=== PATIENT | female | born 1935 | race Caucasian/White ===

== ENCOUNTER 2017-10-18 22:25 | Inpatient (IN) | payer OTHER ==
[2017-10-18 22:44] VITALS: BMI 27.3
--- NOTE | 2017-10-18 23:29 | PDOC ---
History of Present Illness - General Chief Complaint: SIRS, Suspected/Possible Stated Complaint: FEVER Time Seen by Provider: 10/18/17 23:12 Past History - Past Medical History Allergies/Adverse Reactions: Allergies Allergy/AdvReac Type Severity Reaction Status Date / Time Penicillins Allergy Unknown Verified 10/18/17 22:40 Home Medications: Ambulatory Orders Acetaminophen [Mapap] 1,000 mg PO BID 11/17/16 Cariprazine HCl [Vraylar] 1 each PO DAILY 11/17/16 Dextran 70/Hypromellose [Natural Balance Tears Eye Drop] 15 ml OP TID 11/17/16 Nifedipine [Nifedical Xl] 60 mg PO DAILY 11/17/16 Pramipexole Dihydrochloride [Mirapex -] 1 mg PO BID 11/17/16 Nitrofurantoin Monohyd/M-Cryst [Macrobid -] 100 mg PO BID #14 capsule MDD 2 Dementia: Yes GI Disorders: Yes (CONSTIPATION.) HTN: Yes - Suicide/Smoking/Psychosocial Hx Smoking History: Unknown if ever smoked Have you smoked in the past 12 months: No Information on smoking cessation initiated: No Hx Alcohol Use: No Drug/Substance Use Hx: No Substance Use Type: None *Physical Exam - Vital Signs Last Vital Signs Temp Pulse Resp BP Pulse Ox 99.2 F 112 H 14 151/70 99 10/18/17 22:40 10/18/17 22:40 10/18/17 22:40 10/18/17 22:40 10/18/17 22:40
[2017-10-18] MEDS ORDERED: ACETAMINOPHEN 1000 MG/100 ML VIAL (NON FORMULARY) IVPB ONE (23:33)
--- NOTE | 2017-10-18 23:44 | PDOC ---
History of Present Illness <SilvinostefanDemetrioshannonaden - Last Filed: 10/19/17 00:09> - General History Source: Snf Records Exam Limitations: Dementia - History of Present Illness Initial Comments: This is an 82 YOF with h/o UTI with ESBL resistant to cipro, dementia, HTN, spinal stenosis, and DVT/PE who presents c/o fever BIBA from her [facility] ([address] [place] [address]). The patient herself is unable to provide any of her recent medical history or current symptoms 2/2 dementia, and her medical history is taken from her [facility] records. The patient reportedly had a temperature of 102.2 measured tonight and was given #2 Tylenol tabs, but the fever increased to 102.8 as measured two hours later. They also reported her HR to be 122, and her BP was 188/103. <Leilani Joyner - Last Filed: 10/19/17 06:56> - General Chief Complaint: SIRS, Suspected/Possible Stated Complaint: FEVER Time Seen by Provider: 10/18/17 23:12 Past History <SilvinoPaulina aviles - Last Filed: 10/19/17 00:09> - Past Medical History Dementia: Yes GI Disorders: Yes (CONSTIPATION.) HTN: Yes - Suicide/Smoking/Psychosocial Hx Smoking History: Unknown if ever smoked Have you smoked in the past 12 months: No Information on smoking cessation initiated: No Hx Alcohol Use: No Drug/Substance Use Hx: No Substance Use Type: None <Leilani Joyner - Last Filed: 10/19/17 06:56> - Past Medical History Allergies/Adverse Reactions: Allergies Allergy/AdvReac Type Severity Reaction Status Date / Time Penicillins Allergy Unknown Verified 10/18/17 22:40 Home Medications: Ambulatory Orders Acetaminophen [Mapap] 1,000 mg PO BID 11/17/16 Cariprazine HCl [Vraylar] 1 each PO DAILY 11/17/16 Dextran 70/Hypromellose [Natural Balance Tears Eye Drop] 15 ml OP TID 11/17/16 Nifedipine [Nifedical Xl] 60 mg PO DAILY 11/17/16 Pramipexole Dihydrochloride [Mirapex -] 1 mg PO BID 11/17/16 Nitrofurantoin Monohyd/M-Cryst [Macrobid -] 100 mg PO BID #14 capsule MDD 2 Review of Systems - Review of Systems Able to Perform ROS?: No (Dementia) <Leilani Joyner - Last Filed: 10/19/17 06:56> *Physical Exam - Vital Signs Last Vital Signs Temp Pulse Resp BP Pulse Ox 99.2 F 112 H 14 151/70 99 10/18/17 22:40 10/18/17 22:40 10/18/17 22:40 10/18/17 22:40 10/18/17 22:40 <Paulina Patrick - Last Filed: 10/19/17 00:09> - Vital Signs Last Vital Signs Temp Pulse Resp BP Pulse Ox 99.2 F 112 H 14 151/70 99 10/18/17 22:40 10/18/17 22:40 10/18/17 22:40 10/18/17 22:40 10/18/17 22:40 - Physical Exam General Appearance: Yes: Nourished, Appropriately Dressed, Other (initially sleepy but arousable, pleasant elderly woman with obvious dementia, oriented only to self and own birthdate, not to date/season or type of building or city, obvious mild crusting of both eyes, mildly diaphoretic and flushed face) HEENT: positive: EOMI, SALOME, Normal Voice, TMs Normal, Pharynx Normal, Hearing Grossly Normal. negative: Scleral Icterus (R), Scleral Icterus (L), Nasal Congestion Neck: positive: Trachea midline, Supple. negative: Tender, Rigid Respiratory/Chest: positive: Lungs Clear, Normal Breath Sounds. negative: Chest Tender, Respiratory Distress, Crackles, Rhonchi, Stridor, Wheezing Cardiovascular: positive: Regular Rhythm, Edema (1+ pitting edema BLE), Tachycardia, Systolic Murmur Gastrointestinal/Abdominal: positive: Normal Bowel Sounds, Tender (mild RUQ ttp) , Soft. negative: Organomegaly, Pulsatile Mass, Guarding Musculoskeletal: positive: Normal Inspection. negative: Decreased Range of Motion, Vertebral Tenderness Extremity: positive: Normal Capillary Refill, Normal Inspection, Normal Range of Motion, Swelling. negative: Tender, Cyanosis, Calf Tenderness, Erythema Integumentary: positive: Normal Color, Dry, Warm. negative: Erythema, Rash, Bruising Neurologic: positive: trim technician II-XII NML intact (grossly), Alert, Normal Mood/Affect , Normal Response, Motor Strength 5/5, Confused, Disoriented. negative: EOM Palsy, Facial Droop, Numbness, Sensory Deficit <AnyaLeilani - Last Filed: 10/19/17 06:56> ED Treatment Course - LABORATORY CBC & Chemistry Diagram: 10/19/17 00:30 10/19/17 00:30 <AnyaLeilani - Last Filed: 10/19/17 06:56> Medical Decision Making - Medical Decision Making 10/19/17 00:10 EXAM: XR CHEST FINDINGS: The cardiomediastinal silhouette is normal. Left basilar subsegmental atelectasis is noted.. No pleural effusion. IMPRESSION: No acute pathology. Read by: Sincere Welsh MD <Paulina Patrick - Last Filed: 10/19/17 00:09> - Medical Decision Making 82 YOF with h/o UTI with ESBL resistant to cipro, dementia, HTN, spinal stenosis , and DVT/PE, BIBA for fever and tachycardia. On exam she remains febrile and tachycardic and is unable to provide any information about her symptoms or history. States no pain currently, appears flushed and mildly diaphoretic, leaning on left side. DDX IBNLT UTI, PNA/bronchitis, cholecystitis, influenza, cellulitis, PE, diverticulitis, malignancy, drug fever. Ordered is sepsis panel with CBCD, CMP, Mg, Phos, BCx, UA, cx, coags, VBG, BNP, cardiac panel, EKG, CXR. Medications ordered are 250 cc IVF, Ofirmev. 10/19/17 02:00 Patient WBC >16k, lactate 2.6, ALT/AST/Alk Phos all elevated >400, UA shows e/o UTI and also elevated urobilinogen. Ordered is US RUQ which shows tiny gallstones. Patient has been admitted to hospitalist service, IP med/surg. Patient is given second 250 cc IVF, will then repeat lactate. 10/19/17 04:00 Repeat lactate 2.3. <AnyaLeilani - Last Filed: 10/19/17 06:56> *DC/Admit/Observation/Transfer - Attestations Scribe Attestion: 10/19/17 00:11 Documentation prepared by Paulina Patrick, acting as medical research scientist for Travis Oakes MD. <Paulina Patrick - Last Filed: 10/19/17 00:09> - Discharge Dispostion Admit: Yes <Leilani Joyner - Last Filed: 10/19/17 06:56> Diagnosis at time of Disposition: Cholangitis, UTI (urinary tract infection), Sepsis - Discharge Dispostion Condition at time of disposition: Guarded
--- NOTE | 2017-10-18 23:57 | PDOC ---
Attending Attestation - HPI HPI: 10/19/17 00:00 The patient is a 82 year old female, with a significant past medical history of UTI with ESBL resistant to cipro, dementia, HTN, spinal stenosis, and DVT/PE, who presents to the emergency department via EMS from [address] [place] [address] with, fever. The patient currently has dementia so is unable to provide her present symptoms. Documentation prepared by Paulina Patrick, acting as chief medical director for Travis Oakes MD. <Paulina Patrick - Last Filed: 10/19/17 00:00> - Resident Resident Name: Leilani Joyner - ED Attending Attestation I have performed the following: I have examined & evaluated the patient, The case was reviewed & discussed with the resident, I agree w/resident's findings & plan, Exceptions are as noted - Physicial Exam PE: 10/19/17 01:34 Patient is awake and alert, febrile, mildly tachycardic, normotensive with oxygen saturation of 94-96% on room air Normocephalic, atraumatic perrla, eomi, no scleral icterus, conjunctivae were pink mm-dry cta rrr, tachycardic sft, +ruq ttp, nd +1 pitting edema bilaterally to the lower extremities Patient is alert, oriented to self only; patient follows commands and is moving all extremity symmetrically, gait-deferred. - Medical Decision Making 10/19/17 01:35 Patient is an 82-year-old female with dementia who presents to the ER with fever of one days duration. No other history is provided and patient is unable to cooperate with detailed history of present illness. In the ER, patient's febrile mildly tachycardic. Will obtain CBC/CMP/lactic acidosis/blood culture/ urinalysis/urine culture. We'll obtain chest x-ray to rule out infiltrate. Will obtain an influenza swab. Given patient's previous history of urine culture positive for ESBL, we'll administer vancomycin for suspected MRSA infection and imipenem for gram-negative ESBL. CMP reveals abn LFTs. will rule out cbd stone. We'll judiciously hydrate. Likely admission. <Travis Oakes - Last Filed: 10/19/17 02:20> - Medical Decision Making 10/19/17 02:42 Patient Name: LIDIA PERES THIS IS A PRELIMINARY REPORT FROM [facility] DATE OF SERVICE: 2017-10-19 01:52:09 IMAGES: 46 EXAM: US ABDOMEN LIMITED , right upper quadrant and limited abdominal duplex HISTORY: Rule out cholecystitis COMPARISON: None. FINDINGS: Right upper quadrant ultrasound:The liver is normal, without mass or biliary duct dilation. The gallbladder is distended and contains tiny stones without secondary findings of cholecystitis. The CBD is not dilated for age and measures8 millimeters in diameter. Right kidney measures 10.8centimeters in length and is unremarkable. The visualized aorta and IVC are normal. Pancreas is partially obscured, but appears normal. Abdominal duplex: The main portal vein demonstrates normal hepatopedal flow. IMPRESSION: Tiny gallstones without secondary signs for cholecystitis. 10/19/17 02:43 Admit to hospitalist for cholangitis and UTI <Uzma Villanueva - Last Filed: 10/19/17 02:44>
[2017-10-19 00:57] LABS: BASO % 0.2 % (0-2.0); EOS % 0.1 % (0-4.5); HEMOGLOBIN 12.5 GM/dL (10.7-15.3); MCH 31.4 pg (25.7-33.7); MCHC 32.9 g/dl (32.0-36.0); MEAN CELL VOLUME 95.3 fl (80-96); MEAN PLT VOLUME 8.6 fl (7.5-11.1); MONO % 12.9 % (3.8-10.2); NEUT % 81.8 % (42.8-82.8); PLATELET COUNT 241 K/MM3 (134-434); RBC 3.98 M/mm3 (3.60-5.2); RDW 12.6 % (11.6-15.6); VENOUS PC02 38.4 mmHg (38-52); VENOUS PH 7.44 (7.32-7.42); VENOUS PO2 54.7 mmHg (28-48); WHITE BLOOD COUNT 16.8 K/mm3 (4.0-10.0)
[2017-10-19] MEDS ORDERED: ACETAMINOPHEN INJECTION 100 ML IVPB ONE (01:00)
[2017-10-19 01:10] LABS: INR 1.1 (0.82-1.09); PROTHROMBIN TIME (PATIENT) 12.4 SEC (9.98-11.88)
[2017-10-19 01:22] LABS: ALBUMIN 3.1 g/dl (3.4-5.0); ANION GAP 13 (8-16); BLOOD UREA NITROGEN 15 mg/dL (7-18); CALCIUM 8.5 mg/dL (8.5-10.1); CHLORIDE 105 mmol/L (98-107); CO2 24 mmol/L (21-32); CREATININE 0.8 mg/dL (0.55-1.02); GLUCOSE,RANDOM 136 mg/dL (74-106); MAGNESIUM 2.1 mg/dL (1.8-2.4); PHOSPHOROUS 2.8 mg/dL (2.5-4.9); POTASSIUM 3.7 mmol/L (3.5-5.1); SODIUM 142 mmol/L (136-145); TOT PROT 6.6 g/dl (6.4-8.2)
[2017-10-19 01:24] LABS: ALK PHOS 489 U/L (45-117); N-TERMINAL BNP 1153.73 pg/ml (5-450)
[2017-10-19] MEDS ORDERED: SODIUM CHLORIDE 0.9% 1000 ML INFUS.BAG IV ONE ×2 (01:25→04:04)
[2017-10-19 01:29] LABS: SGOT/AST 686 U/L (15-37); SGPT/ALT 556 U/L (12-78)
[2017-10-19 02:12] LABS: URINE APPEARANCE CLOUDY; URINE BLOOD 1+ (NEGATIVE); URINE COLOR AMBER; URINE GLUCOSE (UA) NEGATIVE (NEGATIVE); URINE KETONE NEGATIVE (NEGATIVE); URINE NITRITE POSITIVE (NEGATIVE); URINE UROBILINOGEN 4.0 E.U/dl mg/dL (0.2-1.0)
[2017-10-19 02:18] LABS: BILIRUBIN,DIRECT 1.7 mg/dL (0.0-0.2)
[2017-10-19] MEDS ORDERED: IMIPENEM/CILASTATIN SODIUM 500 MG in SODIUM CHLORIDE 100 ML IV ONE (02:22)
[2017-10-19] MEDS ORDERED: VANCOMYCIN 1 GRAM (PRE-DOCKED) 1,000 MG/250 ML BAG IVPB ONE ×2 (02:22→02:43)
[2017-10-19 02:23] LABS: URINE LEUK ESTERASE 3+ (NEGATIVE); URINE PROTEIN 1+ (NEGATIVE)
[2017-10-19 02:25] LABS: URINE BACTERIA MANY /hpf (NONE SEEN); URINE HYALINE CAST 10 /lpf; URINE MUCUS RARE
[2017-10-19] MEDS ORDERED: SODIUM CHLORIDE 1,000 ML IV SCH (05:30)
[2017-10-19] MEDS ORDERED: ACETAMINOPHEN 325 MG TABLET (FP) PO PRN (05:30)
[2017-10-19] MEDS: POTASSIUM CHLORIDE TABS 20 MEQ TABLET.ER (FP) PO ONE ×2 (05:54→06:15)
[2017-10-19] MEDS ORDERED: HYPROMELLOSE OP SCH (06:00)
[2017-10-19] MEDS ORDERED: DEXTRAN OP SCH (06:00)
[2017-10-19] MEDS ORDERED: [UNRECOGNIZED DRUG - OTHER] OP SCH (06:00)
[2017-10-19] MEDS: HEPARIN NA (PORCINE) 5,000 UNITS/ML 1ML VIAL SQ SCH ×2 (06:37→17:00)
--- NOTE | 2017-10-19 06:47 | PN ---
Teaching Attending Note Name of Resident: Nick Domínguez ATTENDING PHYSICIAN STATEMENT I saw and evaluated the patient. Chart, data, imaging reviewed. I reviewed the resident's note and discussed the case with the resident. I agree with the resident's findings and plan as documented. SUBJECTIVE: 82 year old female [facility] resident, with a significant PMHx of UTI with ESBL Ecoli, dementia, HTN, spinal stenosis, and DVT/PE, send to hospital after developing fever of 102F, tachycardia. Blood and urine cultures drawn in ER. Given vancomycin and imipenem in ER. OBJECTIVE: Last Vital Signs Temp Pulse Resp BP Pulse Ox 98.5 F 101 H 20 151/80 100 10/19/17 06:14 10/19/17 06:14 10/19/17 06:14 10/19/17 06:14 10/19/17 06:14 General- nontoxic appearing HEENT- atraumatic, normocephalic, dry mucous membranes Neck -supple, no masses CV-s1+s2+ RRR Chest- CTA b/l abdomen- soft, Nontender, BS+ Ext- no pedal edema Abnormal Lab Results 10/19/17 10/19/17 10/19/17 00:30 00:30 00:30 WBC 16.8 H D Lymphocytes % 5.0 L D Monocytes % 12.9 H PT with INR 12.40 H VBG pH POC VBG pO2 Mixed VBG HCO3 Random Glucose 136 H D Lactic Acid Total Bilirubin 2.0 H D Direct Bilirubin AST 686 H D ALT 556 H D Alkaline Phosphatase 489 H D B-Natriuretic Peptide 1153.73 H Albumin 3.1 L Urine Protein Urine Blood Urine Urobilinogen 10/19/17 10/19/17 10/19/17 00:30 00:30 00:30 WBC Lymphocytes % Monocytes % PT with INR VBG pH 7.44 H POC VBG pO2 54.7 H Mixed VBG HCO3 25.4 H Random Glucose Lactic Acid 2.6 H* Total Bilirubin Direct Bilirubin 1.7 H AST ALT Alkaline Phosphatase B-Natriuretic Peptide Albumin Urine Protein Urine Blood Urine Urobilinogen 10/19/17 10/19/17 01:56 03:25 WBC Lymphocytes % Monocytes % PT with INR VBG pH POC VBG pO2 Mixed VBG HCO3 Random Glucose Lactic Acid 2.3 H* Total Bilirubin Direct Bilirubin AST ALT Alkaline Phosphatase B-Natriuretic Peptide Albumin Urine Protein 1+ H Urine Blood 1+ H Urine Urobilinogen 4.0 e.u/dl H UA positive for pyuria and many bacteria EKG -sinus tachycardia ASSESSMENT AND PLAN: #Sepsis 2/2 to UTI with + UA, +Lactic acidosis. History of ESBL Ecoli in the past sesitive to meropenem. Less likely from hepatobiliary source as gallbladder U/S not suggestive of cholecytitis. -blood cultures x2 -urine culture -gentle IV fluid hydration -repeat Lactate level -renal U/S -ID consult for antibiotic approval -consider MRCP/ERCP to r/o cholangitis -fall precuations #Transaminitis - uncertain etiology, pattern more consistent with hepatotoxic injury rather than cholestatic. Hepatobiliary U/S not consitent with cholecystitis. -EtOH level -tylenol level -Hep A IgM -Hep B, C serologies -trend LFTs -consider GI evaluation for MRCP/ ERCP to evaluate for cholangitis -continue home medications for chronic medical problems -heparin sc for DVT ppx
[2017-10-19] MEDS ORDERED: HEPARIN NA (PORCINE) 5,000 UNITS/ML 1ML VIAL ONE (07:00)
[2017-10-19 07:12] LABS: BASO % 0.3 % (0-2.0); EOS % 0.3 % (0-4.5); HEMATOCRIT 39.2 % (32.4-45.2); HEMOGLOBIN 12.8 GM/dL (10.7-15.3); LYMPH % 5.8 % (8-40); MCH 31.2 pg (25.7-33.7); MCHC 32.6 g/dl (32.0-36.0); MEAN CELL VOLUME 95.8 fl (80-96); MEAN PLT VOLUME 9.2 fl (7.5-11.1); MONO % 11.6 % (3.8-10.2); PLATELET COUNT 205 K/MM3 (134-434); RBC 4.09 M/mm3 (3.60-5.2); WHITE BLOOD COUNT 17.3 K/mm3 (4.0-10.0)
[2017-10-19 07:31] LABS: INR 1.12 (0.82-1.09); PROTHROMBIN TIME (PATIENT) 12.6 SEC (9.98-11.88)
[2017-10-19] MEDS ORDERED: ARTIFICIAL TEARS (POLYVINYL ALCOHOL 1.4%) OPTH DROPS OU PRN (07:33)
[2017-10-19 07:43] LABS: ALBUMIN 3.1 g/dl (3.4-5.0); ANION GAP 14 (8-16); BLOOD UREA NITROGEN 12 mg/dL (7-18); CALCIUM 8.7 mg/dL (8.5-10.1); CHLORIDE 108 mmol/L (98-107); CO2 20 mmol/L (21-32); CREATININE 0.6 mg/dL (0.55-1.02); GLUCOSE,RANDOM 119 mg/dL (74-106); SODIUM 142 mmol/L (136-145); TOT PROT 6.5 g/dl (6.4-8.2)
[2017-10-19 07:44] LABS: ALK PHOS 479 U/L (45-117)
[2017-10-19 07:45] LABS: POTASSIUM 3.8 mmol/L (3.5-5.1); SGOT/AST 509 U/L (15-37); SGPT/ALT 511 U/L (12-78)
--- NOTE | 2017-10-19 07:50 | HP ---
CHIEF COMPLAINT: fever PCP: Historian: EMR HISTORY OF PRESENT ILLNESS: 82F w/ hx of UTI with ESBL E. coli, dementia, HTN, spinal stenosis, and DVT/PE who presents to the emergency department via EMS from [address] [place] [address] with fever. The patient currently has dementia, is AAOx1 (name) and is unreliable in her history. She endorses lower back pain, but denies fevers, chills, chest pain, shortness of breath, abdominal pain, n/v/d/c, and dysuria. She does not know if she is allergic to PCN, and she can't recall ever having a rash or symptoms from it. Pt found to be tachycardic and leukocytotic in the ED, and she was given a dose of vancyomycin and imipenem/cilastim. ER course was notable for: (1) tachycardia (2) leukocytosis (3) UA findings and elevated LFTs Recent Travel: no PAST MEDICAL HISTORY: UTI with ESBL E. coli, dementia, HTN, spinal stenosis, and DVT/PE PAST SURGICAL HISTORY: unknown Social History: Smoking: no Alcohol: no Drugs: no Family History: non-contributory Allergies Penicillins Allergy (Unknown, Verified 10/18/17 22:40) HOME MEDICATIONS: Home Medications Medication Instructions Recorded Acetaminophen [Mapap] 1,000 mg PO BID 11/17/16 Cariprazine HCl [Vraylar] 1 each PO DAILY 11/17/16 Dextran 70/Hypromellose [Natural 15 ml OP TID 11/17/16 Balance Tears Eye Drop] Nifedipine [Nifedical Xl] 60 mg PO DAILY 11/17/16 Pramipexole Dihydrochloride 1 mg PO BID 11/17/16 [Mirapex -] Nitrofurantoin Monohyd/M-Cryst 100 mg PO BID #14 capsule MDD 2 11/19/16 [Macrobid -] REVIEW OF SYSTEMS CONSTITUTIONAL: Absent: chills, diaphoresis, generalized weakness, malaise, loss of appetite, weight change present: fever HEENT: Absent: rhinorrhea, nasal congestion, throat pain, throat swelling, difficulty swallowing, mouth swelling, ear pain, eye pain, visual changes CARDIOVASCULAR: Absent: chest pain, syncope, palpitations, lightheadedness, peripheral edema present: tachycardia RESPIRATORY: Absent: cough, shortness of breath, dyspnea with exertion, orthopnea, wheezing, stridor, hemoptysis GASTROINTESTINAL: Absent: abdominal pain, abdominal distension, nausea, vomiting, diarrhea, constipation, melena, hematochezia GENITOURINARY: Absent: dysuria, frequency, urgency, hesitancy, hematuria, flank pain, genital pain MUSCULOSKELETAL: Absent: myalgia, arthralgia, joint swelling, neck pain present: back pain SKIN: Absent: rash, itching, pallor HEMATOLOGIC/IMMUNOLOGIC: Absent: easy bleeding, easy bruising, lymphadenopathy, frequent infections ENDOCRINE: Absent: unexplained weight gain, unexplained weight loss, heat intolerance, cold intolerance NEUROLOGIC: Absent: headache, focal weakness or paresthesias, dizziness, unsteady gait, seizure, mental status changes, bladder or bowel incontinence PSYCHIATRIC: Absent: anxiety, depression, suicidal or homicidal ideation, hallucinations. PHYSICAL EXAMINATION Vital Signs - 24 hr 10/18/17 10/19/17 10/19/17 22:40 02:38 06:14 Temperature 99.2 F 98.3 F 98.5 F Pulse Rate 112 H Pulse Rate [ 104 H 101 H Apical] Respiratory 14 20 20 Rate Blood Pressure 151/70 Blood Pressure 154/73 151/80 [Left Arm] O2 Sat by Pulse 99 95 100 Oximetry (%) GENERAL: elderly female, trying to get out of bed, in NAD, AAOx1 (name) HEENT: slightly dry mucous membranes NECK: Normal range of motion, supple without lymphadenopathy, JVD, or masses. LUNGS: Breath sounds equal, clear to auscultation bilaterally. No wheezes, and no crackles. No accessory muscle use. HEART: tachycardic, + systolic murmur ABDOMEN: Soft, nontender, not distended, normoactive bowel sounds, no guarding, no rebound, no masses. No hepatomegaly or splenomegaly. MUSCULOSKELETAL: no CVA tenderness. trace b/l LE edema NEUROLOGICAL: Cranial nerves II-XII intact. Normal speech. Laboratory Results - last 24 hr 10/19/17 10/19/17 10/19/17 00:30 00:30 00:30 WBC 16.8 H D RBC 3.98 Hgb 12.5 Hct 38.0 MCV 95.3 MCH 31.4 MCHC 32.9 RDW 12.6 Plt Count 241 MPV 8.6 Neutrophils % 81.8 Lymphocytes % 5.0 L D Monocytes % 12.9 H Eosinophils % 0.1 Basophils % 0.2 PT with INR 12.40 H INR 1.10 VBG pH POC VBG pCO2 POC VBG pO2 Mixed VBG HCO3 Sodium 142 Potassium 3.7 Chloride 105 Carbon Dioxide 24 Anion Gap 13 BUN 15 Creatinine 0.8 Creat Clearance w eGFR > 60 Random Glucose 136 H D Lactic Acid Calcium 8.5 Phosphorus 2.8 Magnesium 2.1 Total Bilirubin 2.0 H D Direct Bilirubin AST 686 H D ALT 556 H D Alkaline Phosphatase 489 H D Creatine Kinase Troponin I B-Natriuretic Peptide 1153.73 H Total Protein 6.6 Albumin 3.1 L Urine Color Urine Appearance Urine pH Ur Specific [place] Urine Protein Urine Glucose (UA) Urine Ketones Urine Blood Urine Nitrite Urine Bilirubin Urine Urobilinogen Urine WBC (Auto) Urine RBC (Auto) Urine Bacteria Hyaline Casts Urine Mucus Blood Type Antibody Screen 10/19/17 10/19/17 10/19/17 00:30 00:30 00:30 WBC RBC Hgb Hct MCV MCH MCHC RDW Plt Count MPV Neutrophils % Lymphocytes % Monocytes % Eosinophils % Basophils % PT with INR INR VBG pH 7.44 H POC VBG pCO2 38.4 POC VBG pO2 54.7 H Mixed VBG HCO3 25.4 H Sodium Potassium Chloride Carbon Dioxide Anion Gap BUN Creatinine Creat Clearance w eGFR Random Glucose Lactic Acid 2.6 H* Calcium Phosphorus Magnesium Total Bilirubin Direct Bilirubin 1.7 H AST ALT Alkaline Phosphatase Creatine Kinase 124 Troponin I < 0.02 B-Natriuretic Peptide Total Protein Albumin Urine Color Urine Appearance Urine pH Ur Specific [place] Urine Protein Urine Glucose (UA) Urine Ketones Urine Blood Urine Nitrite Urine Bilirubin Urine Urobilinogen Urine WBC (Auto) Urine RBC (Auto) Urine Bacteria Hyaline Casts Urine Mucus Blood Type Antibody Screen 10/19/17 10/19/17 10/19/17 00:30 01:56 03:25 WBC RBC Hgb Hct MCV MCH MCHC RDW Plt Count MPV Neutrophils % Lymphocytes % Monocytes % Eosinophils % Basophils % PT with INR INR VBG pH POC VBG pCO2 POC VBG pO2 Mixed VBG HCO3 Sodium Potassium Chloride Carbon Dioxide Anion Gap BUN Creatinine Creat Clearance w eGFR Random Glucose Lactic Acid 2.3 H* Calcium Phosphorus Magnesium Total Bilirubin Direct Bilirubin AST ALT Alkaline Phosphatase Creatine Kinase Troponin I B-Natriuretic Peptide Total Protein Albumin Urine Color Donna Urine Appearance Cloudy Urine pH 6.0 Ur Specific [place] 1.027 Urine Protein 1+ H Urine Glucose (UA) Negative Urine Ketones Negative Urine Blood 1+ H Urine Nitrite Positive Urine Bilirubin 2.0 Urine Urobilinogen 4.0 e.u/dl H Urine WBC (Auto) 413 Urine RBC (Auto) 45 Urine Bacteria Many Hyaline Casts 10 Urine Mucus Rare Blood Type B POSITIVE Antibody Screen Negative 10/19/17 10/19/17 10/19/17 06:56 06:56 06:56 WBC 17.3 H RBC 4.09 Hgb 12.8 Hct 39.2 MCV 95.8 MCH 31.2 MCHC 32.6 RDW 13.0 Plt Count 205 MPV 9.2 Neutrophils % 82.0 Lymphocytes % 5.8 L Monocytes % 11.6 H Eosinophils % 0.3 D Basophils % 0.3 PT with INR 12.60 H INR 1.12 VBG pH POC VBG pCO2 POC VBG pO2 Mixed VBG HCO3 Sodium 142 Potassium 3.8 Chloride 108 H Carbon Dioxide 20 L Anion Gap 14 BUN 12 Creatinine 0.6 D Creat Clearance w eGFR > 60 Random Glucose 119 H Lactic Acid Calcium 8.7 Phosphorus Magnesium Total Bilirubin 3.0 H D Direct Bilirubin AST 509 H D ALT 511 H Alkaline Phosphatase 479 H Creatine Kinase Troponin I B-Natriuretic Peptide Total Protein 6.5 Albumin 3.1 L Urine Color Urine Appearance Urine pH Ur Specific [place] Urine Protein Urine Glucose (UA) Urine Ketones Urine Blood Urine Nitrite Urine Bilirubin Urine Urobilinogen Urine WBC (Auto) Urine RBC (Auto) Urine Bacteria Hyaline Casts Urine Mucus Blood Type Antibody Screen US: small gallstones, no cholecystitis, no CBD stones or dilation ASSESSMENT/PLAN: 82F w/ hx of UTI with ESBL E. coli, dementia, HTN, spinal stenosis, and DVT/PE who presents to the emergency department via EMS from [address] [place] [address] with fever, found to have tachycardia, leukocytosis, lactic acidosis elevated LFTs, and UA consistent with UTI. #severe sepsis -tachycardia, leukocytosis, lactic acidosis -likely 2/2 UTI (+UA) vs. cholangitis (elevated LFTs although no RUQ pain, no jaundice, no US findings of cholecystitis or CBD dilation or CBD stones) -f/u repeat lactic acid -normal saline @ 83cc/hr -vanc and imipenem/cilastim given in ED. ID consulted, f/u recs -f/u Ucx and Bcx -trend wbc and temps -trend LFTs -consider MRCP, consider GI consult -f/u hepatitis panel, acetaminophen level, alcohol level #dementia -continue home cariprazine #HTN -continue home nifedipine #FEN/ppx -normal saline @ 83cc/hr -electrolytes wnl -low sodium diet -no GI ppx -heparin 5000U TID Confirm all home medications. Case discussed with attending, Dr. Crooks. -Nick Domínguez MD PGY1 Visit type - Emergency Visit Emergency Visit: Yes ED Registration Date: 10/19/17 Care time: The patient presented to the Emergency Department on the above date and was hospitalized for further evaluation of their emergent condition. - New Patient This patient is new to me today: Yes Date on this admission: 10/19/17 - Critical Care Critical Care patient: No
--- NOTE | 2017-10-19 08:07 | PN ---
Progress Note (short form) - Note Progress Note: ID consult dictated imp/reccd sepsis UTI CHolangitis Pen allergy Dementia continue imipenem f/u cultures ?pancreatic mass consider MRCP
--- NOTE | 2017-10-19 08:51 | PN ---
Progress Note (short form) - Note Progress Note: Subjective: unable to obtain detailed hx due to dementia. she denies any pain, or SOB. . 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 Objective: Vital Signs: Last Vital Signs Temp Pulse Resp BP Pulse Ox 98.5 F 101 H 20 151/80 100 10/19/17 06:14 10/19/17 06:14 10/19/17 06:14 10/19/17 06:14 10/19/17 06:14 Laboratory Results - last 24 hr 10/19/17 10/19/17 10/19/17 00:30 00:30 00:30 WBC 16.8 H D RBC 3.98 Hgb 12.5 Hct 38.0 MCV 95.3 MCH 31.4 MCHC 32.9 RDW 12.6 Plt Count 241 MPV 8.6 Neutrophils % 81.8 Lymphocytes % 5.0 L D Monocytes % 12.9 H Eosinophils % 0.1 Basophils % 0.2 PT with INR 12.40 H INR 1.10 VBG pH POC VBG pCO2 POC VBG pO2 Mixed VBG HCO3 Sodium 142 Potassium 3.7 Chloride 105 Carbon Dioxide 24 Anion Gap 13 BUN 15 Creatinine 0.8 Creat Clearance w eGFR > 60 Random Glucose 136 H D Lactic Acid Calcium 8.5 Phosphorus 2.8 Magnesium 2.1 Total Bilirubin 2.0 H D Direct Bilirubin AST 686 H D ALT 556 H D Alkaline Phosphatase 489 H D Creatine Kinase Troponin I B-Natriuretic Peptide 1153.73 H Total Protein 6.6 Albumin 3.1 L Urine Color Urine Appearance Urine pH Ur Specific [place] Urine Protein Urine Glucose (UA) Urine Ketones Urine Blood Urine Nitrite Urine Bilirubin Urine Urobilinogen Urine WBC (Auto) Urine RBC (Auto) Urine Bacteria Hyaline Casts Urine Mucus Acetaminophen Blood Type Antibody Screen 10/19/17 10/19/17 10/19/17 00:30 00:30 00:30 WBC RBC Hgb Hct MCV MCH MCHC RDW Plt Count MPV Neutrophils % Lymphocytes % Monocytes % Eosinophils % Basophils % PT with INR INR VBG pH 7.44 H POC VBG pCO2 38.4 POC VBG pO2 54.7 H Mixed VBG HCO3 25.4 H Sodium Potassium Chloride Carbon Dioxide Anion Gap BUN Creatinine Creat Clearance w eGFR Random Glucose Lactic Acid 2.6 H* Calcium Phosphorus Magnesium Total Bilirubin Direct Bilirubin 1.7 H AST ALT Alkaline Phosphatase Creatine Kinase 124 Troponin I < 0.02 B-Natriuretic Peptide Total Protein Albumin Urine Color Urine Appearance Urine pH Ur Specific [place] Urine Protein Urine Glucose (UA) Urine Ketones Urine Blood Urine Nitrite Urine Bilirubin Urine Urobilinogen Urine WBC (Auto) Urine RBC (Auto) Urine Bacteria Hyaline Casts Urine Mucus Acetaminophen Blood Type Antibody Screen 10/19/17 10/19/17 10/19/17 00:30 01:56 03:25 WBC RBC Hgb Hct MCV MCH MCHC RDW Plt Count MPV Neutrophils % Lymphocytes % Monocytes % Eosinophils % Basophils % PT with INR INR VBG pH POC VBG pCO2 POC VBG pO2 Mixed VBG HCO3 Sodium Potassium Chloride Carbon Dioxide Anion Gap BUN Creatinine Creat Clearance w eGFR Random Glucose Lactic Acid 2.3 H* Calcium Phosphorus Magnesium Total Bilirubin Direct Bilirubin AST ALT Alkaline Phosphatase Creatine Kinase Troponin I B-Natriuretic Peptide Total Protein Albumin Urine Color Donna Urine Appearance Cloudy Urine pH 6.0 Ur Specific [place] 1.027 Urine Protein 1+ H Urine Glucose (UA) Negative Urine Ketones Negative Urine Blood 1+ H Urine Nitrite Positive Urine Bilirubin 2.0 Urine Urobilinogen 4.0 e.u/dl H Urine WBC (Auto) 413 Urine RBC (Auto) 45 Urine Bacteria Many Hyaline Casts 10 Urine Mucus Rare Acetaminophen Blood Type B POSITIVE Antibody Screen Negative 10/19/17 10/19/17 10/19/17 06:56 06:56 06:56 WBC 17.3 H RBC 4.09 Hgb 12.8 Hct 39.2 MCV 95.8 MCH 31.2 MCHC 32.6 RDW 13.0 Plt Count 205 MPV 9.2 Neutrophils % 82.0 Lymphocytes % 5.8 L Monocytes % 11.6 H Eosinophils % 0.3 D Basophils % 0.3 PT with INR 12.60 H INR 1.12 VBG pH POC VBG pCO2 POC VBG pO2 Mixed VBG HCO3 Sodium 142 Potassium 3.8 Chloride 108 H Carbon Dioxide 20 L Anion Gap 14 BUN 12 Creatinine 0.6 D Creat Clearance w eGFR > 60 Random Glucose 119 H Lactic Acid Calcium 8.7 Phosphorus Magnesium Total Bilirubin 3.0 H D Direct Bilirubin AST 509 H D ALT 511 H Alkaline Phosphatase 479 H Creatine Kinase Troponin I B-Natriuretic Peptide Total Protein 6.5 Albumin 3.1 L Urine Color Urine Appearance Urine pH Ur Specific [place] Urine Protein Urine Glucose (UA) Urine Ketones Urine Blood Urine Nitrite Urine Bilirubin Urine Urobilinogen Urine WBC (Auto) Urine RBC (Auto) Urine Bacteria Hyaline Casts Urine Mucus Acetaminophen Blood Type Antibody Screen 10/19/17 10/19/17 06:56 06:56 WBC RBC Hgb Hct MCV MCH MCHC RDW Plt Count MPV Neutrophils % Lymphocytes % Monocytes % Eosinophils % Basophils % PT with INR INR VBG pH POC VBG pCO2 POC VBG pO2 Mixed VBG HCO3 Sodium Potassium Chloride Carbon Dioxide Anion Gap BUN Creatinine Creat Clearance w eGFR Random Glucose Lactic Acid 1.9 Calcium Phosphorus Magnesium Total Bilirubin Direct Bilirubin AST ALT Alkaline Phosphatase Creatine Kinase Troponin I B-Natriuretic Peptide Total Protein Albumin Urine Color Urine Appearance Urine pH Ur Specific [place] Urine Protein Urine Glucose (UA) Urine Ketones Urine Blood Urine Nitrite Urine Bilirubin Urine Urobilinogen Urine WBC (Auto) Urine RBC (Auto) Urine Bacteria Hyaline Casts Urine Mucus Acetaminophen 6.873 L Blood Type Antibody Screen Physical Exam: NAD, Awake, alert, does not know her age, location or medical condition HEENT: L pupil, 1 mm, R pupil , deformed and measures 2 mm., unicteric sclera, no facial droop, dry MM. No JVD CV: RRR, 2/6 SM at base, 3/6 Sm at [place] with no radiation to axilla Lungs : CATB Abd:soft, ND , TTP in RUQ, no rebound tenderness or quarding. Ext: no edema , no signs of fungal infection among toes. Skin: No ulcers or skin break down on buttucks Neuro : limited due to no cooperation. no facial droop, pupils as above , tongue at mid line, not oriented . moves all her extremities. Imaging: Cxray and US reviewed. Assessment/Plan: 82 y/o lady with h/o HTN, dementia,spinal stenosis, in chart h/o DVT/PE ( not in [facility] records), who was [facility] form [facility] due to fever . She was found to be septic . 1- Sepsis: could be due to UTI, but ascending cholangitis can't be r/o . previous urine cx showed ESBL E coli. - cont Imipinem. - follow blood cx and U cx drawn before Abx administration. - check MRCP - IVF - follow lactic acid 2- Elevated LFTs: obstructive cholestatic picture. US showed dilated CBD , and possible pancreatic head mass. Elevated LFTS could be due to extrinsic CBD obstruction from pancreatic mass, VS intrinsic obstruction form a stone. - -ch--check urgent MRCP with See to evaluate CBd and Pancreas parancyma -If stone --> urgent ERCP to remove stone - if tumor---> might need stenting depending on goals of care. - repeat LFTS in am - avoid hepatotoxic drugs - will consult GI 3- H/o HTN: - cont home nifedipine. 4- DVT PX : SQ heparin Spoke to Yordan Hernandezen, ,the health care agent appointed by court ( has no family ) . goals of care and code status discussed. patient is DNR/ DNI. RN Pat witnessed over phone . Re. MRI, she is not aware of any pacemakers, bullet injury, head or peritoneal shunts , no recent EGD , colonoscopy with clips or stents. Not aware of any allergy to See. Will obtain , xray of orbits, KUB, . Cxray with no pacemakers or AICD . if w/u neg will do the MRI . Visit type - Emergency Visit Emergency Visit: Yes ED Registration Date: 10/19/17 Care time: The patient presented to the Emergency Department on the above date and was hospitalized for further evaluation of their emergent condition. - New Patient This patient is new to me today: Yes Date on this admission: 10/19/17 - Critical Care Critical Care patient: No
--- NOTE | 2017-10-19 09:28 | CONS ---
DATE OF CONSULTATION: DATE OF DICTATION: 10/19/2017 INFECTIOUS DISEASE CONSULTATION REQUESTING PHYSICIAN: The hospitalist service. HISTORY OF PRESENT ILLNESS: This is an 82-year-old woman with prior history of E. coli ESBL UTI and dementia, who presented to the emergency room yesterday from her assisted living facility with fever. She was apparently 102.8 there. She is unable to give any history as she is demented. She thinks she is living in [place] and that she is 39 years old. Currently she is alert. She denies any complaints whatsoever. She denies any chest pain, abdominal pain, nausea, vomiting, diarrhea or dysuria. PAST MEDICAL HISTORY: Notable for this UTI which she had last October. She had an ESBL organism. She has a history of dementia, hypertension, spinal stenosis and DVT/PE, also constipation. PAST SURGICAL HISTORY: Not known. ALLERGIES: She is allergic to PENICILLIN. MEDICATIONS: Her medications at the [place] [facility] include acetaminophen, cariprazine, nifedipine, Mirapex. SOCIAL HISTORY: She resides at the facility. REVIEW OF SYSTEMS: As per HPI. PHYSICAL EXAMINATION: General: She is awake and alert. Vital Signs: Temperature 98.5, maximum temperature 100.5. Pulse 101, blood pressure 151/80, respiratory rate 20, saturating 100% on room air. HEENT: She is normocephalic. Her eyes are mildly icteric. She has no thrush. Lungs: Clear to auscultation. Heart: Regular rate and rhythm. Abdomen: Firm, nontender. She has no right upper quadrant pain. She has no mid-epigastric pain. Extremities: Without edema. DIAGNOSTIC STUDIES: Her labs are notable for white count 17.3, hemoglobin 12.8, platelets 205. BUN 12, creatinine 0.6, total bilirubin 3, AST 509, ALT 511, alkaline phosphatase 479. Lactic acid 2.6, repeat 2.3. Urinalysis with 413 white cells. Influenza screen was sent in the emergency room. Cultures were sent. She had an ultrasound of her abdomen that showed a distended gallbladder with cholelithiasis, mild dilatation of the CBD, with the question of a possible mass in the pancreatic head. ASSESSMENT: In summary, this is an elderly woman admitted with sepsis, evidence of pyuria as well as possible biliary sepsis, with an abnormal ultrasound. Given her prior history of extended-spectrum beta lactamase organisms, she was started on imipenem by the emergency room, which I think would be reasonable to continue. She is receiving hydration. Would consider an MRCP to further evaluate her biliary status, as this could definitely be biliary sepsis, and the question of a pancreatic malignancy has been raised. Further recommendations to follow based on the clinical course. Of note, she is PENICILLIN ALLERGIC, but she tolerated carbapenem in the emergency room, so I would continue the imipenem at this time. IVIS MASSEY M.D. [id number]
[2017-10-19] MEDS ORDERED: CARIPRAZINE HCL PO SCH (10:00)
--- NOTE | 2017-10-19 10:27 | EKG ---
Test Reason : Blood Pressure : / mmHG Vent. Rate : 115 BPM Atrial Rate : 115 BPM P-R Int : 140 ms QRS Dur : 124 ms QT Int : 376 ms P-R-T Axes : 079 013 103 degrees QTc Int : 520 ms SINUS TACHYCARDIA NON-SPECIFIC INTRA-VENTRICULAR CONDUCTION DELAY NONSPECIFIC ST AND T WAVE ABNORMALITY ABNORMAL ECG WHEN COMPARED WITH ECG OF 17-NOV-2016 11:07, T WAVE INVERSION NOW EVIDENT IN LATERAL LEADS CLINICAL CORRELATION IS RECOMMENDED BASELINE ARTIFACT Confirmed by SAMREEN DE LEÓN MD ([id number]) on 10/19/2017 10:27:24 AM Referred By: Confirmed By:SAMREEN DE LEÓN MD
[2017-10-19] MEDS: IMIPENEM/CILASTATIN SODIUM 500 MG in SODIUM CHLORIDE 100 ML IVPB SCH ×2 (11:02→23:40)
[2017-10-19] MEDS: PRAMIPEXOLE DIHYDROCHLORIDE 1 MG TABLET PO SCH ×2 (11:59→23:46)
[2017-10-19] MEDS: NIFEdipine E.R 60 MG TABLET (UD) PO SCH (11:59)
--- NOTE | 2017-10-19 12:54 | CON.GI ---
Consult Consult Specialty:: Gastroenterology Referred by:: Dr. Talavera Reason for Consultation:: Jaundice - History of Present Illness Chief Complaint: Mercedes expresses that she has a mild epigastric pain History of Present Illness: 82F BIBA for fever of 102 at her alf center. She has dementia and is unable to gave a fully reliable history. She tells me that she has mild epigastric pain not related to eating. She expresses that she has a good appetite. She denies any h/o liver disease or alcohol abuse. She recalls having an appendectomy bit no other surgery. She is and had no children or any other family. Her attendant told me that she has a court appointed health care proxy Rebecca Cortes. I spoke to he web marketing assistant as Ms. Cortes is en route internationally. I left me cell phone number for her to call me. In the ER Mercedes was tachycardic and hypotensive with lactic acidosis which has resolved. - History Source History Provided By: Patient, Medical Record Limitations to Obtaining History: Dementia - Past Medical History Cardio/Vascular: Yes: HTN, Other (DVT and pulmonary embolism ? per the record.) Hepatobiliary: Yes: Cholelithiasis Renal/: Yes: UTI (ESBL E coli) Musculoskeletal: Yes: Other (spinal stenosis) - Past Surgical History Past Surgical History: Yes: Appendectomy - Alcohol/Substance Use Hx Alcohol Use: No - Smoking History Smoking history: Unknown if ever smoked Have you smoked in the past 12 months: No - Social History Usual Living Arrangement: Assisted Living ADL: Support Services Home Medications - Allergies Allergies/Adverse Reactions: Allergies Allergy/AdvReac Type Severity Reaction Status Date / Time Penicillins Allergy Unknown Verified 10/18/17 22:40 - Home Medications Home Medications: Ambulatory Orders Acetaminophen [Mapap] 1,000 mg PO BID 11/17/16 Cariprazine HCl [Vraylar] 1.5 mg PO DAILY 11/17/16 Nifedipine [Nifedical Xl] 60 mg PO DAILY 11/17/16 Pramipexole Dihydrochloride [Mirapex -] 1 mg PO BID 11/17/16 Family Disease History - Family Disease History Family History: Unable to Obtain Review of Systems Unable to obtain ROS, reason: dementia Physical Exam-GI Vital Signs: Vital Signs Temperature 99.8 F H 10/19/17 10:30 Pulse Rate 90 10/19/17 11:50 Respiratory Rate 18 12/31/17 11:50 Blood Pressure 172/96 10/19/17 11:50 O2 Sat by Pulse Oximetry (%) 99 10/19/17 10:30 CBC,CMP WBC 17.3 K/mm3 (4.0-10.0) H 10/19/17 06:56 RBC 4.09 M/mm3 (3.60-5.2) 10/19/17 06:56 Hgb 12.8 GM/dL (10.7-15.3) 10/19/17 06:56 Hct 39.2 % (32.4-45.2) 10/19/17 06:56 MCV 95.8 fl (80-96) 10/19/17 06:56 MCH 31.2 pg (25.7-33.7) 10/19/17 06:56 MCHC 32.6 g/dl (32.0-36.0) 10/19/17 06:56 RDW 13.0 % (11.6-15.6) 10/19/17 06:56 Plt Count 205 K/MM3 (134-434) 10/19/17 06:56 MPV 9.2 fl (7.5-11.1) 10/19/17 06:56 Neutrophils % 82.0 % (42.8-82.8) 10/19/17 06:56 Lymphocytes % 5.8 % (8-40) L 10/19/17 06:56 Monocytes % 11.6 % (3.8-10.2) H 10/19/17 06:56 Eosinophils % 0.3 % (0-4.5) D 10/19/17 06:56 Basophils % 0.3 % (0-2.0) 10/19/17 06:56 Sodium 142 mmol/L (136-145) 10/19/17 06:56 Potassium 3.8 mmol/L (3.5-5.1) 10/19/17 06:56 Chloride 108 mmol/L (98-107) H 10/19/17 06:56 Carbon Dioxide 20 mmol/L (21-32) L 10/19/17 06:56 Anion Gap 14 (8-16) 10/19/17 06:56 BUN 12 mg/dL (7-18) 10/19/17 06:56 Creatinine 0.6 mg/dL (0.55-1.02) D 10/19/17 06:56 Creat Clearance w eGFR > 60 (>60) 10/19/17 06:56 Random Glucose 119 mg/dL (74-106) H 10/19/17 06:56 Lactic Acid 1.9 mmol/L (0.4-2.0) 10/19/17 06:56 Calcium 8.7 mg/dL (8.5-10.1) 10/19/17 06:56 Phosphorus 2.8 mg/dL (2.5-4.9) 10/19/17 00:30 Magnesium 2.1 mg/dL (1.8-2.4) 10/19/17 00:30 Total Bilirubin 3.0 mg/dL (0.2-1.0) H D 10/19/17 06:56 Direct Bilirubin 1.7 mg/dL (0.0-0.2) H 10/19/17 00:30 AST 509 U/L (15-37) H D 10/19/17 06:56 ALT 511 U/L (12-78) H 10/19/17 06:56 Alkaline Phosphatase 479 U/L (45-117) H 10/19/17 06:56 Creatine Kinase 124 IU/L (26-192) 10/19/17 00:30 Troponin I < 0.02 ng/ml (0.00-0.05) 10/19/17 00:30 B-Natriuretic Peptide 1153.73 pg/ml (5-450) H 10/19/17 00:30 Total Protein 6.5 g/dl (6.4-8.2) 10/19/17 06:56 Albumin 3.1 g/dl (3.4-5.0) L 10/19/17 06:56 Current Medications Generic Name Dose Route Start Last Admin Trade Name Freq PRN Reason Stop Dose Admin Acetaminophen 650 mg 10/19/17 05:30 Tylenol - PO Q4H PRN FEVER OR PAIN Artificial Tears 1 drop 10/19/17 07:33 Artificial Tears OU TID PRN DRY EYES Heparin Sodium (Porcine) 5,000 unit 10/19/17 06:30 10/19/17 06:37 Heparin - SQ 5,000 unit TID LATRELL Administration Sodium Chloride 1,000 mls @ 83 mls/hr 10/19/17 05:30 10/19/17 05:53 Normal Saline - IV 83 mls/hr ASDIR LATRELL Administration Imipenem/Cilastatin Sodium 500 100 mls @ 100 mls/hr 10/19/17 10:00 10/19/17 11:02 mg/ Sodium Chloride IVPB 100 mls/hr Q8H-IV LATRELL Administration Protocol Nifedipine 60 mg 10/19/17 10:00 10/19/17 11:59 Procardia Xl - PO 60 mg DAILY LATRELL Administration Non-Formulary Medication 1 each 10/19/17 10:00 Cariprazine Hcl [Vraylar] PO DAILY LATRELL Pramipexole Dihydrochloride 1 mg 10/19/17 10:00 10/19/17 11:59 Mirapex - PO 1 mg BID LATRELL Administration Constitutional: Yes: No Distress, Calm Eyes: Yes: Sclera Icterus HENT: Yes: Atraumatic Neck: Yes: Supple Cardiovascular: Yes: Regular Rate and Rhythm Respiratory: Yes: CTA Bilaterally Gastrointestinal Inspection: Yes: Scars (healed vertical RLQ incision) ...Palpate: Yes: Soft, Tenderness (mild right epigastric tenderness) ...Rectal Exam: Yes: Guaiac Negative, Sphincter Tone Normal Neurological: Yes: Confusion (but answers simple questions) Labs: CBC, BMP 10/19/17 06:56 10/19/17 06:56 INR, PTT INR 1.12 (0.82-1.09) 10/19/17 06:56 Laboratory Tests 10/19/17 10/19/17 10/19/17 00:30 00:30 00:30 WBC Hgb Hct Plt Count Lactic Acid 2.6 H* Total Bilirubin 2.0 H D Direct Bilirubin 1.7 H AST 686 H D ALT 556 H D Alkaline Phosphatase 489 H D Albumin 10/19/17 10/19/17 10/19/17 03:25 06:56 06:56 WBC 17.3 H Hgb 12.8 Hct 39.2 Plt Count 205 Lactic Acid 2.3 H* Total Bilirubin 3.0 H D Direct Bilirubin AST 509 H D ALT 511 H Alkaline Phosphatase 479 H Albumin 3.1 L 10/19/17 06:56 WBC Hgb Hct Plt Count Lactic Acid 1.9 Total Bilirubin Direct Bilirubin AST ALT Alkaline Phosphatase Albumin Laboratory Tests 11/17/16 11:45 Total Bilirubin 0.7 Imaging - Results Ultrasound: Report Reviewed (Marcus Mosley Name: [facility] Phys: Travis Oakes MD : [id number] Age: 82 Sex: F [facility] Acct: [id number] Loc: [address] Exam Date: 10/19/17 Status: [place] [address] Unit Number: [id number] EXAM#: TYPE/EXAM: RESULT: [id number] US/ABDOMEN US -LIMITED HISTORY PROVIDED: Rule out acute cholecystitis. Real time examination of the abdomen demonstrates the following: The study is limited due to the patient's size and inability to fully cooperate. The gallbladder is somewhat distended. It contains biliary sludge and small calculi. There is no evidence of intrahepatic biliary duct dilatation. The common bile duct is mildly dilated measuring 8 mm. There is no sonographic evidence of acute cholecystitis. If this is clinically suspected, a follow-up HIDA scan may be warranted. The liver is normal in size and texture with no intrahepatic masses seen. Hepatopedal flow is documented within the main portal vein. The pancreas is not well visualized due to overlying bowel gas. There is the suggestion of a mass in the region of the pancreatic head. A follow-up CT scan or MRCP examination is now recommended. There is no evidence of hydronephrosis or acute abnormalities of the right kidney. There is no evidence of AAA. The IVC is patent. IMPRESSION: 1. Distended gallbladder with cholelithiasis and mild dilatation of the CBD. No sonographic evidence of acute cholecystitis. 2. Poor visualization of the pancreas with possible mass in the region of the pancreatic head. CT/ MRCP follow-up recommended. Limited study as described above. Reported By : Antione Gaston MD 10/19/17741 Technologist: Evie Pierre Transcribed Date/Time: 10/19/17741 Apns: Antione Gaston Printed Date/Time: By: Signed by: Antione Gaston Signed on: Sep-2017 07:43) Problem List - Problems (1) Cholelithiasis with acute cholangitis Assessment/Plan: I believe that Mercedes's fever, hypotension, lactic acidosis and jaundice reflect cholangitis rather than a pancreatic neoplasm. This is supported by the transaminases elevations, rapid bilirubin rise from 2 to 3, pain, dilated duct and presence of small GB stones. She does not have the stigmata of a pancreatic malignancy. I have told the health proxy's web marketing assistant that I need to discuss the patient's care DERIK. When she calls I will propose an ERCP with sphincterotomy to extract CBD stones and will inform her of the risk of perforation, hemorrhage and ERCP induced pancreatitis leading to multiorgan failure among others. Agree with need to obtain MRCP or CT imaging to confirm the need for ERCP and to exclude a pancreatic mass as suggested by sonography. Continue antibiotics. Would ideally want to defer ERCP until 1/2 when the GI team is available but will undertake emergently if the clinical condition mandates such intervention under a 2 physician consent. Code(s): K80.20 - CALCULUS OF GALLBLADDER W/O CHOLECYSTITIS W/O OBSTRUCTION; K83.0 - CHOLANGITIS (2) History of appendectomy Code(s): Z98.890 - OTHER SPECIFIED POSTPROCEDURAL STATES; Z90.49 - ACQUIRED ABSENCE OF OTHER SPECIFIED PARTS OF DIGESTIVE TRACT (3) Dilated bile duct Code(s): K83.8 - OTHER SPECIFIED DISEASES OF BILIARY TRACT (4) Jaundice with stoppage of bile flow Code(s): R17 - UNSPECIFIED JAUNDICE (5) Pancreatic mass Code(s): K86.9 - DISEASE OF PANCREAS, UNSPECIFIED Assessment/Plan MRCP or CT Continue antibiotics Await consent Clear liquids Discussed case with Dr Talvaera
[2017-10-19] MEDS ORDERED: NITROFURANTOIN MACROCRYSTAL 50 MG CAPSULE (FP) ONE (14:42)
[2017-10-19] MEDS ORDERED: INSULIN (NOVOLOG) ASPART 100 UNITS/ML 10ML VIAL ONE (21:34)
[2017-10-19] MEDS ORDERED: PT OWN MED DRAWER 7, Y5N ONE (23:12)
[2017-10-20] MEDS ORDERED: PT OWN MED DRAWER 7, Y5N ONE ×3 (01:00→17:44)
[2017-10-20] MEDS: IMIPENEM/CILASTATIN SODIUM 500 MG in SODIUM CHLORIDE 100 ML IVPB SCH ×4 (01:22→17:46)
[2017-10-20] MEDS ORDERED: INSULIN (NOVOLOG) ASPART 100 UNITS/ML 10ML VIAL ONE (06:52)
--- NOTE | 2017-10-20 07:55 | PN ---
Physical Exam: SUBJECTIVE: Patient seen and examined at bed side this morning. Wants to get out of bed. Denies chest pain, sob, cough, palpitation, abdominal pain, nausea or vomiting. 1 BM today. plain goods hemmer at bed side who mentioned she slept well last night. As per RN, no acute overnight events. OBJECTIVE: Vital Signs Period Temp Pulse Resp BP Sys/Soriano Pulse Ox Last 24 Hr 98.8 F-99.8 F 90-99 14-20 150-172/82-102 95-100 GENERAL: Elderly female, wants to get out of bed, Oriented to place only, in no acute distress HEAD: Normal with no signs of trauma. EYES: EOM intact, no pallor or icterus. ENT: Ears normal, moist mucous membranes. NECK:Supple. LUNGS: Breath sounds equal, clear to auscultation bilaterally, no wheezes, no crackles, no accessory muscle use. HEART: Regular rate and rhythm, S1, S2 with soft systolic murmur. ABDOMEN: Soft, nontender, nondistended, normoactive bowel sounds, no guarding, no rebound, no hepatosplenomegaly, no masses. EXTREMITIES: 2+ pulses, warm, well-perfused, no edema. DECUBITI ULCER- Stage 1. NEUROLOGICAL: No facial droop. Normal speech, gait not observed. PSYCH: Normal mood, normal affect. SKIN: Warm, dry, normal turgor, no rashes or lesions noted Laboratory Results - last 24 hr 10/19/17 10/19/17 10/19/17 01:56 06:56 06:56 Lactic Acid 1.9 Ur Leukocyte Esterase 1+ H Acetaminophen 6.873 L Alcohol, Quantitative 10/19/17 08:40 Lactic Acid Ur Leukocyte Esterase Acetaminophen Alcohol, Quantitative < 5.0 Active Medications Generic Name Dose Route Start Last Admin Trade Name Freq PRN Reason Stop Dose Admin Acetaminophen 650 mg 10/19/17 05:30 Tylenol - PO Q4H PRN FEVER OR PAIN Artificial Tears 1 drop 10/19/17 07:33 Artificial Tears OU TID PRN DRY EYES Heparin Sodium (Porcine) 5,000 unit 10/19/17 06:30 10/19/17 17:00 Heparin - SQ 5,000 unit TID LATRELL Administration Sodium Chloride 1,000 mls @ 83 mls/hr 10/19/17 05:30 10/19/17 05:53 Normal Saline - IV 83 mls/hr ASDIR LATRELL Administration Imipenem/Cilastatin Sodium 500 100 mls @ 100 mls/hr 10/19/17 23:30 10/20/17 03:16 mg/ Sodium Chloride IVPB 100 mls/hr Q8H-IV LATRELL Administration Protocol Nifedipine 60 mg 10/19/17 10:00 10/19/17 11:59 Procardia Xl - PO 60 mg DAILY LATRELL Administration Non-Formulary Medication 1 each 10/19/17 10:00 Cariprazine Hcl [Vraylar] PO DAILY LATRELL Pramipexole Dihydrochloride 1 mg 10/19/17 10:00 10/19/17 23:46 Mirapex - PO 1 mg BID LATRELL Administration ASSESSMENT/PLAN: Patient is an 82 year old Female with significant past medical history of UTI with ESBL E. 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 # Severe sepsis likely secondary to UTI; suspicious for cholangitis/ cholecystitis. Lactic acid resolved. For UTI, continue Imipenem/Cilastin IV Q8H Day 2 (completed 3 doses) Urine culture showed lactose fermenting gram negative Liver enzymes improving Upon reviewing of the CT scan, it is highly suspicious she might have cholecystitis Dr. Jones consult appreciated. He recommends ERCP with sphincterotomy to extract CBD stones tomorrow, awaiting consent from HCP. NPO for now Continue IV NS @ 83mls.hr # Hypokalemia K-3.3. Repleted with IV Kcl x 2bags. Repeat in AM. # Dementia Continue cariprazine PO Daily # Hypertension-Controlled Continue home Nifedipine 60 mg PO Daily # FEN IV NS @ 83cc/hr Electrolyes WNL NPO for possible ERCP # Prophylaxis For DVT: Heparin on hold for possible surgery, SCds in place For GI: Not indicated # Code Status: DNR/DNI # Dispo: Duration of stay unknown. Illness, Investigation and Plan of care explained to the patient. She verbalized understanding. Case to be discussed with attending Dr. Talavera. Visit type - Emergency Visit Emergency Visit: Yes ED Registration Date: 10/19/17 Care time: The patient presented to the Emergency Department on the above date and was hospitalized for further evaluation of their emergent condition. - New Patient This patient is new to me today: Yes Date on this admission: 10/20/17 - Critical Care Critical Care patient: No
[2017-10-20 08:01] LABS: BASO % 0.3 % (0-2.0); HEMATOCRIT 37.6 % (32.4-45.2); HEMOGLOBIN 12.4 GM/dL (10.7-15.3); LYMPH % 13.8 % (8-40); MCH 31.6 pg (25.7-33.7); MEAN CELL VOLUME 95.5 fl (80-96); MEAN PLT VOLUME 8.8 fl (7.5-11.1); MONO % 12.2 % (3.8-10.2); NEUT % 71.7 % (42.8-82.8); PLATELET COUNT 235 K/MM3 (134-434); RBC 3.93 M/mm3 (3.60-5.2); RDW 12.8 % (11.6-15.6); WHITE BLOOD COUNT 11.7 K/mm3 (4.0-10.0)
[2017-10-20 08:06] LABS: INR 1.09 (0.82-1.09); PROTHROMBIN TIME (PATIENT) 12.3 SEC (9.98-11.88)
[2017-10-20 08:26] LABS: CHLORIDE 107 mmol/L (98-107); POTASSIUM 3.3 mmol/L (3.5-5.1); SODIUM 141 mmol/L (136-145)
[2017-10-20 08:35] LABS: ALBUMIN 2.8 g/dl (3.4-5.0); ALK PHOS 441 U/L (45-117); AMYLASE 28 U/L (25-115); ANION GAP 11 (8-16); BILIRUBIN,TOTAL 3.5 mg/dL (0.2-1.0); BLOOD UREA NITROGEN 6 mg/dL (7-18); CALCIUM 8.6 mg/dL (8.5-10.1); CO2 23 mmol/L (21-32); CREATININE 0.5 mg/dL (0.55-1.02); GLUCOSE,RANDOM 88 mg/dL (74-106); LIPASE 118 U/L (73-393); SGOT/AST 209 U/L (15-37); SGPT/ALT 331 U/L (12-78); TOT PROT 5.8 g/dl (6.4-8.2)
[2017-10-20] MEDS: NIFEdipine E.R 60 MG TABLET (UD) PO SCH (10:26)
[2017-10-20] MEDS: PRAMIPEXOLE DIHYDROCHLORIDE 1 MG TABLET PO SCH ×2 (10:26→21:24)
[2017-10-20] MEDS ORDERED: POTASSIUM CHLORIDE 20 MEQ in SODIUM CHLORIDE 250 ML IVPB ONE (10:30)
--- NOTE | 2017-10-20 10:51 | PN ---
Progress Note (short form) - Note Progress Note: ID Imipenem continues Appears comfortable Selected Entries 10/20/17 06:48 Temperature 98.8 F Pulse Rate 93 H Respiratory 20 Rate Blood Pressure 159/82 Microbiology 10/19/17 01:56 Urine - Urine Clean Catch Urine Culture - Preliminary Lactose Fermenting Neg Bacilli 10/19/17 00:30 Blood - Peripheral Venous Blood Culture - Preliminary NO GROWTH OBTAINED AFTER 24 HOURS, INCUBATION TO CONTINUE FOR 4 DAYS. 10/19/17 00:30 Blood - Peripheral Venous Blood Culture - Preliminary NO GROWTH OBTAINED AFTER 24 HOURS, INCUBATION TO CONTINUE FOR 4 DAYS. Laboratory Tests 10/19/17 10/19/17 10/19/17 00:30 00:30 03:25 WBC 16.8 H D Hgb Plt Count Creatinine Creat Clearance w eGFR Lactic Acid 2.6 H* 2.3 H* 10/19/17 10/20/17 10/20/17 06:56 05:35 05:35 WBC 17.3 H 11.7 H D Hgb 12.4 Plt Count 235 Creatinine 0.5 L Creat Clearance w eGFR > 60 Lactic Acid Assessment Cholangitis Gram negative bacteremia History of ESBL on isolation Plan Continue Imipenem pending culture GI follow up Carin EDWARDS
[2017-10-20] MEDS: HEPARIN NA (PORCINE) 5,000 UNITS/ML 1ML VIAL SQ SCH ×2 (13:48→21:23)
--- NOTE | 2017-10-20 14:45 | PN ---
Teaching Attending Note Name of Resident: Clarisse Johnson ATTENDING PHYSICIAN STATEMENT I saw and evaluated the patient. I reviewed the resident's note and discussed the case with the resident. I agree with the resident's findings and plan as documented. SUBJECTIVE: last night , was confused and tried to climb out of bed OBJECTIVE: NAD, Awake, alert, does not know her age, location or year HEENT: L pupil, 1 mm, R pupil , deformed and measures 2 mm, no facial droop, dry MM. No JVD CV: RRR, 2/6 SM at base, 3/6 Sm at [place] with no radiation to axilla Lungs : CATB Abd:soft, ND , TTP in RUQ, no rebound tenderness or quarding. Ext: no edema ,or erythema Assessment/Plan: 82 y/o lady with h/o HTN, dementia,spinal stenosis, in chart h/o DVT/PE ( not in NH records), who [place] due to fever . She was found to be septic . 1-Sepsis: could be due to UTI, but ascending cholangitis can't be r/o . case was d/w Dr. Jones who d/w rad. possible acute cholecystitis - cont Imipenem - follow blood cx - Radiologist approved MRCP. will order. - cont IVF - consult surgery - NPO 2- Elevated LFTs: obstructive cholestatic picture. CT with possible pancreatic head mass. can't r/o an obstructive stone or cholangiocarcinoma . - MRCP approved - follow LFTS - d/w Dr Guillaume, will need ERCP but consent was not obtained from health care agent yet. will try to call again today . - avoid hepatotoxics 3- H/o HTN: - cont home nifedipine. 4- DVT PX: SQ heparin DnR/DNI, d/w her court appointed proxy.
--- NOTE | 2017-10-20 15:47 | PN ---
GI Progress Note Subjective: GI NOte: Bilirubin still rising. Mercedes denies pain. Ordered MRCP again but was told by Dr Murguia that it was attempted yesterday and could not be done as Mercedes kept moving. I reviewed the CT scan with him.There is GB wall thickening suggesting cholecystitis. The pancreatic mass is subtle and CBD stones remain a possibility. Have scheduled ERCP for tomorrow but still await a call from the health care proxy in order to procure consent. The aid at Mercedes's bedside has called the residence and asked that they again try to contact the health care proxy and get her to call me. - Objective Vital Signs: Vital Signs Temperature 99.0 F 10/20/17 15:13 Pulse Rate 98 H 10/20/17 15:13 Respiratory Rate 20 10/20/17 15:13 Blood Pressure 132/71 10/20/17 15:13 O2 Sat by Pulse Oximetry (%) 95 10/20/17 09:00 Constitutional: Calm Eyes: Yes: Sclera Icterus ...Auscultate: Yes: Normoactive Bowel Sounds ...Palpate: Yes: Soft, Other (nontender) Labs: CBC, BMP 10/20/17 05:35 10/20/17 05:35 INR, PTT INR 1.09 (0.82-1.09) 10/20/17 05:35 Laboratory Tests 10/20/17 05:35 Total Bilirubin 3.5 H Direct Bilirubin 3.0 H D AST 209 H D ALT 331 H D Alkaline Phosphatase 441 H Total Amylase 28 Lipase 118 Assessment/Plan Continue antibiotics Await consent to allow me to proceed with ERCP Problem List - Problems (1) Cholelithiasis with acute cholangitis Assessment/Plan: Continue to suspect cholangitis rather than obstrucitng neoplasm. I await a call from the health proxy to discuss the patient's care and to procure consent for the ERCP. Code(s): K80.20 - CALCULUS OF GALLBLADDER W/O CHOLECYSTITIS W/O OBSTRUCTION; K83.0 - CHOLANGITIS (2) History of appendectomy Code(s): Z98.890 - OTHER SPECIFIED POSTPROCEDURAL STATES; Z90.49 - ACQUIRED ABSENCE OF OTHER SPECIFIED PARTS OF DIGESTIVE TRACT (3) Dilated bile duct Code(s): K83.8 - OTHER SPECIFIED DISEASES OF BILIARY TRACT (4) Jaundice with stoppage of bile flow Code(s): R17 - UNSPECIFIED JAUNDICE (5) Pancreatic mass Code(s): K86.9 - DISEASE OF PANCREAS, UNSPECIFIED
--- NOTE | 2017-10-20 16:22 | PN ---
Progress Note (short form) - Note Progress Note: GI NOte: Gladis Cortes, the health care proxy called me. I discussed the risks of perforation, hemorrhage and multiorgan failure that can occur as a results of ERCP induced pancreatitis. I also informed her that there could be an underlying neoplasm and/or cholecystitis with the need for palliative stenting or cholecystectomy. I answered all of her questions after which she granted an informed consent for ERCP. Will do the ERCP tomorrow. Problem List - Problems (1) Cholelithiasis with acute cholangitis Code(s): K80.20 - CALCULUS OF GALLBLADDER W/O CHOLECYSTITIS W/O OBSTRUCTION; K83.0 - CHOLANGITIS (2) History of appendectomy Code(s): Z98.890 - OTHER SPECIFIED POSTPROCEDURAL STATES; Z90.49 - ACQUIRED ABSENCE OF OTHER SPECIFIED PARTS OF DIGESTIVE TRACT (3) Dilated bile duct Code(s): K83.8 - OTHER SPECIFIED DISEASES OF BILIARY TRACT (4) Jaundice with stoppage of bile flow Code(s): R17 - UNSPECIFIED JAUNDICE (5) Pancreatic mass Code(s): K86.9 - DISEASE OF PANCREAS, UNSPECIFIED
[2017-10-20] MEDS: DEXTROSE 5%-0.45% SALINE 1,000 ML IV SCH (21:20)
[2017-10-21] MEDS: IMIPENEM/CILASTATIN SODIUM 500 MG in SODIUM CHLORIDE 100 ML IVPB SCH ×2 (01:17→12:03)
[2017-10-21] MEDS: HEPARIN NA (PORCINE) 5,000 UNITS/ML 1ML VIAL SQ SCH ×2 (05:55→14:15)
[2017-10-21 09:25] LABS: BASO % 0.7 % (0-2.0); EOS % 2.1 % (0-4.5); HEMATOCRIT 39.8 % (32.4-45.2); HEMOGLOBIN 13.1 GM/dL (10.7-15.3); LYMPH % 18.3 % (8-40); MCH 31.5 pg (25.7-33.7); MEAN CELL VOLUME 95.4 fl (80-96); MEAN PLT VOLUME 8.9 fl (7.5-11.1); MONO % 10.5 % (3.8-10.2); NEUT % 68.4 % (42.8-82.8); PLATELET COUNT 238 K/MM3 (134-434); RBC 4.17 M/mm3 (3.60-5.2); WHITE BLOOD COUNT 8.6 K/mm3 (4.0-10.0)
[2017-10-21 09:34] LABS: INR 1.07 (0.82-1.09); PROTHROMBIN TIME (PATIENT) 12.1 SEC (9.98-11.88)
--- NOTE | 2017-10-21 09:42 | CONSULT ---
- Consultation REQUESTING PROVIDER: gilbert pacheco CONSULT REQUEST: We have been asked to surgically evaluate this patient for abdominal pain PCP:Mellissa Talavera HISTORY OF PRESENT ILLNESS: 82 y/o female admitted from assisted living facility w/ / nausea and vomiting and abdominal and elevated temperature; w/u reveals cholelithiasis and possible choledocholithiasis; patient responded to IVF/IVAB's and was seen by GI and will be having an ERCP and related procedures today; at present she has no c/o. PMHx: dementia PSHx: open appendectomy Home Medications Medication Instructions Recorded Acetaminophen [Mapap] 1,000 mg PO BID 11/17/16 Cariprazine HCl [Vraylar] 1.5 mg PO DAILY 11/17/16 Nifedipine [Nifedical Xl] 60 mg PO DAILY 11/17/16 Pramipexole Dihydrochloride 1 mg PO BID 11/17/16 [Mirapex -] Allergies Allergy/AdvReac Type Severity Reaction Status Date / Time Penicillins Allergy Unknown Verified 10/18/17 22:40 PHYSICAL EXAM: GENERAL: Awake, alert, and not fully oriented, in no acute distress. HEAD: Normal with no signs of trauma. EYES: ? icteric, conjunctiva clear. NECK: Normal ROM, supple without lymphadenopathy, JVD, or masses. ABDOMEN: Soft, nontender, not distended, normoactive bowel sounds, no guarding, no rebound, no masses. No organomegaly. no hernias; healed right paremedian incision. MUSCULOSKELETAL: Normal ROM at all joints. No bony deformities or tenderness. No CVA tenderness. UPPER EXTREMITIES: 2+ pulses, warm, well-perfused. No cyanosis. Cap refill <2 seconds. No peripheral edema. LOWER EXTREMITIES: 2+ pulses, warm, well-perfused. No calf tenderness. No peripheral edema. NEUROLOGICAL: Normal speech, gait not observed. PSYCH: Cooperative. Good eye contact. Appropriate mood and affect. SKIN: Warm, dry, normal turgor, no rashes or lesions noted. Vital Signs Temperature 98.5 F 10/21/17 06:24 Pulse Rate 83 10/21/17 06:39 Respiratory Rate 20 10/21/17 06:24 Blood Pressure 151/77 10/21/17 06:39 O2 Sat by Pulse Oximetry (%) 95 10/20/17 21:00 Lab Results WBC 8.6 K/mm3 (4.0-10.0) 10/21/17 08:30 RBC 4.17 M/mm3 (3.60-5.2) 10/21/17 08:30 Hgb 13.1 GM/dL (10.7-15.3) 10/21/17 08:30 Hct 39.8 % (32.4-45.2) 10/21/17 08:30 MCV 95.4 fl (80-96) 10/21/17 08:30 MCHC 33.0 g/dl (32.0-36.0) 10/21/17 08:30 RDW 13.0 % (11.6-15.6) 10/21/17 08:30 Plt Count 238 K/MM3 (134-434) 10/21/17 08:30 Sodium 141 mmol/L (136-145) 10/20/17 05:35 Potassium 3.3 mmol/L (3.5-5.1) L 10/20/17 05:35 Chloride 107 mmol/L (98-107) 10/20/17 05:35 Carbon Dioxide 23 mmol/L (21-32) 10/20/17 05:35 Anion Gap 11 (8-16) 10/20/17 05:35 BUN 6 mg/dL (7-18) L D 10/20/17 05:35 Creatinine 0.5 mg/dL (0.55-1.02) L 10/20/17 05:35 Random Glucose 88 mg/dL (74-106) D 10/20/17 05:35 Calcium 8.6 mg/dL (8.5-10.1) 10/20/17 05:35 Blood Type B POSITIVE 10/19/17 00:30 Antibody Screen Negative 10/19/17 00:30 INR 1.09 (0.82-1.09) 10/20/17 05:35 w/u to date reviewed IMP: cholelithiasis; r/o choledocholithiasis/cholangitis PLAN: agree w/ w/u to date; will f/u after ERCP and related procedures for evaluation for lap dominique. Frederick Quezada MD FACS Visit type - Case Type Case Type: ED Admission - Emergency Emergency Visit: Yes ED Registration Date: 10/19/17 Care time: The patient presented to the Emergency Department on the above date and was hospitalized for further evaluation of their emergent condition. - New patient This patient is new to me today: Yes Date on this admission: 10/21/17
[2017-10-21 09:45] LABS: ALBUMIN 2.7 g/dl (3.4-5.0); ANION GAP 7 (8-16); BILIRUBIN,DIRECT 3.7 mg/dL (0.0-0.2); BILIRUBIN,TOTAL 4.3 mg/dL (0.2-1.0); BLOOD UREA NITROGEN 5 mg/dL (7-18); CALCIUM 8.1 mg/dL (8.5-10.1); CHLORIDE 108 mmol/L (98-107); CO2 26 mmol/L (21-32); CREATININE 0.5 mg/dL (0.55-1.02); GLUCOSE,RANDOM 134 mg/dL (74-106); POTASSIUM 3.5 mmol/L (3.5-5.1); SGOT/AST 195 U/L (15-37); SGPT/ALT 274 U/L (12-78); SODIUM 141 mmol/L (136-145); TOT PROT 5.9 g/dl (6.4-8.2)
[2017-10-21 09:46] LABS: ALK PHOS 485 U/L (45-117)
[2017-10-21] MEDS ORDERED: POTASSIUM CHLORIDE 30 MEQ in SODIUM CHLORIDE 300 ML IVPB ONE (10:00)
--- NOTE | 2017-10-21 11:22 | PN ---
Progress Note, Physician History of Present Illness: Chart reviewed. Events noted Appears comfortable, not in distress, or pain. Tmax 99 - Current Medication List Current Medications: Active Medications Acetaminophen (Tylenol -) 650 mg PO Q4H PRN PRN Reason: FEVER OR PAIN Artificial Tears (Artificial Tears) 1 drop OU TID PRN PRN Reason: DRY EYES Heparin Sodium (Porcine) (Heparin -) 5,000 unit SQ TID [facility] Last Admin: 10/21/17 05:55 Dose: Not Given Imipenem/Cilastatin Sodium 500 (mg/ Sodium Chloride) 100 mls @ 100 mls/hr IVPB Q8H-IV LATRELL PRN Reason: Protocol Last Admin: 10/21/17 01:17 Dose: 100 mls/hr Dextrose/Sodium Chloride (D5-1/2ns -) 1,000 mls @ 75 mls/hr IV ASDIR [facility] Last Admin: 10/20/17 21:20 Dose: 75 mls/hr Potassium Chloride 30 meq/ (Sodium Chloride) 315 mls @ 105 mls/hr IVPB ONCE ONE Stop: 10/21/17 12:59 Nifedipine (Procardia Xl -) 60 mg PO DAILY [facility] Last Admin: 10/20/17 10:26 Dose: 60 mg Non-Formulary Medication (Cariprazine Hcl [Vraylar]) 1 each PO DAILY [facility] Pramipexole Dihydrochloride (Mirapex -) 1 mg PO BID [facility] Last Admin: 10/20/17 21:24 Dose: 1 mg - Objective Vital Signs: Vital Signs Temperature 98.5 F 10/21/17 06:24 Pulse Rate 83 10/21/17 06:39 Respiratory Rate 20 10/21/17 06:24 Blood Pressure 151/77 10/21/17 06:39 O2 Sat by Pulse Oximetry (%) 95 10/20/17 21:00 Constitutional: Yes: No Distress, Calm Eyes: Yes: Conjunctiva Clear HENT: Yes: Atraumatic Neck: Yes: Supple Cardiovascular: Yes: Regular Rate and Rhythm Respiratory: Yes: Regular Gastrointestinal: Yes: Soft. No: Distention, Melena, Tenderness, Tenderness, Epigastrium, Tenderness, Rebound, Vomiting Neurological: Yes: Alert Labs: CBC, BMP 10/21/17 08:30 10/21/17 08:30 INR, PTT INR 1.07 (0.82-1.09) 10/21/17 08:30 Abnormal Lab Results 10/21/17 10/21/17 10/21/17 08:30 08:30 08:30 Monocytes % 10.5 H PT with INR 12.10 H Chloride 108 H Anion Gap 7 L BUN 5 L Creatinine 0.5 L Random Glucose 134 H D Calcium 8.1 L Total Bilirubin 4.3 H D Direct Bilirubin 3.7 H D AST 195 H ALT 274 H Alkaline Phosphatase 485 H Total Protein 5.9 L Albumin 2.7 L - ....Imaging Cat Scan: Report Reviewed Problem List - Problems (1) Cholelithiasis with acute cholangitis Code(s): K80.20 - CALCULUS OF GALLBLADDER W/O CHOLECYSTITIS W/O OBSTRUCTION; K83.0 - CHOLANGITIS Assessment/Plan Non-toxic appearance and comfortable this am. ERCP planned for today
--- NOTE | 2017-10-21 11:47 | PN ---
Progress Note (short form) - Note Progress Note: gi consult reviewed for ERCP today she is alert and comfortable reports some abdominal discomfort Vital Signs Period Temp Pulse Resp BP Sys/Soriano Pulse Ox Last 24 Hr 98.5 F-99.0 F 83-98 20-20 132-160/67-90 95 cor-rrr lungs decreased bs at bases abd soft, mld midepigastric discomfort to palpation ext no edema CBC, BMP 10/21/17 08:30 10/21/17 08:30 Microbiology 10/19/17 01:56 Urine - Urine Clean Catch Urine Culture - Final Escherichia Coli 10/19/17 00:30 Blood - Peripheral Venous Blood Culture - Preliminary NO GROWTH OBTAINED AFTER 48 HOURS, INCUBATION TO CONTINUE FOR 3 DAYS. 10/19/17 00:30 Blood - Peripheral Venous Blood Culture - Preliminary NO GROWTH OBTAINED AFTER 48 HOURS, INCUBATION TO CONTINUE FOR 3 DAYS. 10/19/17 01:00 Nasopharyngeal Swab Influenza Types A,B Antigen (DAVID) - Final 10/19/17 01:00 Nasopharyngeal Swab - Final a/p sepsis UTI CHolangitis-for ercp today Pen allergy Dementia change to ertapenem d/w hospitalist service
[2017-10-21] MEDS ORDERED: ERTAPENEM SODIUM 1 GM in SODIUM CHLORIDE 50 ML IVPB SCH (12:00)
[2017-10-21] MEDS: NIFEdipine E.R 60 MG TABLET (UD) PO SCH (12:02)
[2017-10-21] MEDS: PRAMIPEXOLE DIHYDROCHLORIDE 1 MG TABLET PO SCH ×2 (12:05→21:54)
[2017-10-21] MEDS ORDERED: PT OWN MED DRAWER 7, Y5N ONE (12:05)
[2017-10-21] MEDS ORDERED: ERTAPENEM SODIUM 1 GM in SODIUM CHLORIDE 100 ML IVPB SCH (12:19)
[2017-10-21] MEDS ORDERED: PROPOFOL 20 ML ONE (12:44)
[2017-10-21] MEDS ORDERED: SUCCINYLCHOLINE CHLORIDE 200 MG/10 ML VIAL ONE (12:45)
[2017-10-21] MEDS ORDERED: ONDANSETRON 4 MG/2 ML VIAL ONE (12:45)
[2017-10-21] MEDS ORDERED: DESFLURANE GAS 240 ML BOTTLE IH ONE (12:56)
[2017-10-21] MEDS ORDERED: IOHEXOL 300 MG/ML INFUS..BTL IV ONE ×2 (13:43)
--- NOTE | 2017-10-21 14:59 | PN ---
Progress Note (short form) - Note Progress Note: GI Procedure NOte: Please see ERCP report. A malignant appearing distal CBD stricture with proximal dilation was noted suggesting a pancreatic cancer vs cholangiocarcinoma. Brushings were taken and a 7Fr stent inserted to palliate. He jennifer ultimately need to be evaluated at a tertiary care center with EUS and a repeat ERCP to place a metallic stent. Dr. Topete will assume care for this pateint. Problem List - Problems (1) Cholelithiasis with acute cholangitis Code(s): K80.20 - CALCULUS OF GALLBLADDER W/O CHOLECYSTITIS W/O OBSTRUCTION; K83.0 - CHOLANGITIS (2) History of appendectomy Code(s): Z98.890 - OTHER SPECIFIED POSTPROCEDURAL STATES; Z90.49 - ACQUIRED ABSENCE OF OTHER SPECIFIED PARTS OF DIGESTIVE TRACT (3) Dilated bile duct Code(s): K83.8 - OTHER SPECIFIED DISEASES OF BILIARY TRACT (4) Jaundice with stoppage of bile flow Code(s): R17 - UNSPECIFIED JAUNDICE (5) Pancreatic mass Code(s): K86.9 - DISEASE OF PANCREAS, UNSPECIFIED
[2017-10-21] MEDS: DEXTROSE 5%-0.45% SALINE 1,000 ML IV SCH (18:34)
[2017-10-21] MEDS: LACTATED RINGERS SOLUTION 1,000 ML/1,000 ML INFUS.BAG IV SCH (19:24)
--- NOTE | 2017-10-21 19:41 | PN ---
Teaching Attending Note Name of Resident: Nick Domínguez ATTENDING PHYSICIAN STATEMENT I saw and evaluated the patient. I reviewed the resident's note and discussed the case with the resident. I agree with the resident's findings and plan as documented. SUBJECTIVE: No events over night. denies any pain at time of evaluation this am OBJECTIVE: NAD, Awake, alert, does not know her age or location HEENT: L pupil, 1 mm, R pupil , deformed and measures 2 mm, no facial droop, dry MM. No JVD CV: RRR, 2/6 SM at base, 3/6 Sm at [place] with no radiation to axilla Lungs : CATB Abd:soft, ND , minimal TTP in RUQ, no rebound tenderness or quarding. Ext: no edema ,or erythema Assessment/Plan: 82 y/o lady with h/o HTN, dementia,spinal stenosis, in chart h/o DVT/PE ( not in NH records), who was brought form [place] due to fever . She was found to be septic . 1-Sepsis: due to UTI. ? biliary source - ertapenem - follow blood cx - cont IVF 2- Elevated LFTs: obstructive cholestatic picture. mRCP was not done as she was not cooperative - s/p ERCP with high suspicion fro pancreatic cancer . & fr stent was placed - Case was d/w Dr. Jones , stent needs to be changed with repeaT ERCP to a metalic stent - will d/w HCP goals of care - life expectancy is probably < 6 months - will consult palliative care - follow LFTS fo rnow 3- H/o HTN: - cont home nifedipine. 4- DVT PX: hold Sq heparin x 48 hrs after procedure DnR/DNI, Palliative care consult . Will discuss Hospice
--- NOTE | 2017-10-21 22:08 | PN ---
Physical Exam: SUBJECTIVE: Patient seen and examined. Per aid, pt did not sleep at all last night. This am, pt complains of back pain , but denies fevers, chills, chest pain, SOB, abdominal pain, n/v/d/c, and dysuria. OBJECTIVE: Vital Signs Period Temp Pulse Resp BP Sys/Soriano Pulse Ox Last 24 Hr 98.2 F-100 F 78-100 16-20 139-162/70-90 98-100 GENERAL: elderly female, in NAD, AAOx1 (name) HEENT: NC, AT NECK: Normal range of motion, supple without lymphadenopathy, JVD, or masses. LUNGS: Breath sounds equal, clear to auscultation bilaterally. No wheezes, and no crackles. No accessory muscle use. HEART: normal rate and rhythm, + systolic murmur ABDOMEN: ND, normoactive BS, moderately tender in RUQ MUSCULOSKELETAL: trace b/l LE edema NEUROLOGICAL: Cranial nerves II-XII intact. Normal speech. Laboratory Results - last 24 hr 10/19/17 10/21/17 10/21/17 06:56 08:30 08:30 WBC 8.6 RBC 4.17 Hgb 13.1 Hct 39.8 MCV 95.4 MCH 31.5 MCHC 33.0 RDW 13.0 Plt Count 238 MPV 8.9 Neutrophils % 68.4 Lymphocytes % 18.3 D Monocytes % 10.5 H Eosinophils % 2.1 Basophils % 0.7 PT with INR INR Sodium 141 Potassium 3.5 Chloride 108 H Carbon Dioxide 26 Anion Gap 7 L BUN 5 L Creatinine 0.5 L Random Glucose 134 H D Calcium 8.1 L Total Bilirubin 4.3 H D Direct Bilirubin 3.7 H D AST 195 H ALT 274 H Alkaline Phosphatase 485 H Total Protein 5.9 L Albumin 2.7 L Hepatitis C Antibody 0.1 10/21/17 08:30 WBC RBC Hgb Hct MCV MCH MCHC RDW Plt Count MPV Neutrophils % Lymphocytes % Monocytes % Eosinophils % Basophils % PT with INR 12.10 H INR 1.07 Sodium Potassium Chloride Carbon Dioxide Anion Gap BUN Creatinine Random Glucose Calcium Total Bilirubin Direct Bilirubin AST ALT Alkaline Phosphatase Total Protein Albumin Hepatitis C Antibody Active Medications Generic Name Dose Route Start Last Admin Trade Name Freq PRN Reason Stop Dose Admin Acetaminophen 650 mg 10/19/17 05:30 10/21/17 21:54 Tylenol - PO 650 mg Q4H PRN Administration FEVER OR PAIN Artificial Tears 1 drop 10/19/17 07:33 Artificial Tears OU TID PRN DRY EYES Ertapenem 1 gm/ Sodium 100 mls @ 100 mls/hr 10/21/17 12:19 Chloride IVPB DAILY LATRELL Protocol Lactated Ringer's 1,000 ml in 1,000 mls @ 125 mls/hr 10/21/17 15:15 10/21/17 19:24 Lactated Ringers Solution IV 125 mls/hr ASDIR LATRELL Administration Nifedipine 60 mg 10/19/17 10:00 10/21/17 12:02 Procardia Xl - PO 60 mg DAILY LATRELL Administration Non-Formulary Medication 1 each 10/19/17 10:00 Cariprazine Hcl [Vraylar] PO DAILY LATRELL Pramipexole Dihydrochloride 1 mg 10/19/17 10:00 10/21/17 21:54 Mirapex - PO 1 mg BID LATRELL Administration ASSESSMENT/PLAN: 82F w/ hx of UTI with ESBL E. coli, dementia, HTN, spinal stenosis, and DVT/PE who presents to the emergency department via EMS from [address] [place] [address] with fever, found to have tachycardia, leukocytosis, lactic acidosis elevated LFTs, and UA consistent with UTI. #sepsis -likely 2/2 UTI -lactic acidosis resolved -normal saline @ 83cc/hr -ID on board, abx changed to ertapenem -Ucx: E. coli -Bcx: nothing for 48 hours -trend wbc and temps #abnormal LFTs -MRCP attempted, but pt did not sit still during exam -s/p ERCP on 10/21 which showed malignant appearing distal CBD stricture suggesting pancreatic vs. cholangiocarcinoma. Brushings and 7FR stent inserted. Will need tertiary care center EUS and repeat ERCP with metallic stent placement. -per surgery, will f/u for lap dominique post ERCP -f/u [place]-19-9 -f/u hepatitis panel #dementia -continue home cariprazine #HTN -continue home nifedipine #FEN/ppx -normal saline @ 83cc/hr -electrolytes wnl -regular diet -no GI ppx -SCDs Case discussed with attending, Dr. Talavera. -Nick Domínguez MD PGY1 Visit type - Emergency Visit Emergency Visit: Yes ED Registration Date: 10/19/17 Care time: The patient presented to the Emergency Department on the above date and was hospitalized for further evaluation of their emergent condition. - New Patient This patient is new to me today: No - Critical Care Critical Care patient: No
[2017-10-22] MEDS: LACTATED RINGERS SOLUTION 1,000 ML/1,000 ML INFUS.BAG IV SCH ×2 (06:19→15:39)
[2017-10-22 08:20] LABS: HEMATOCRIT 38.2 % (32.4-45.2); HEMOGLOBIN 12.6 GM/dL (10.7-15.3); MCH 31.5 pg (25.7-33.7); MEAN CELL VOLUME 95.6 fl (80-96); PLATELET COUNT 262 K/MM3 (134-434); RBC 3.99 M/mm3 (3.60-5.2); RDW 13.1 % (11.6-15.6); WHITE BLOOD COUNT 10.8 K/mm3 (4.0-10.0)
[2017-10-22 08:40] LABS: INR 1.08 (0.82-1.09); PROTHROMBIN TIME (PATIENT) 12.2 SEC (9.98-11.88)
[2017-10-22 09:01] LABS: ALBUMIN 2.7 g/dl (3.4-5.0); ALK PHOS 504 U/L (45-117); AMYLASE 16 U/L (25-115); ANION GAP 11 (8-16); BILIRUBIN,DIRECT 1.4 mg/dL (0.0-0.2); BILIRUBIN,TOTAL 2.1 mg/dL (0.2-1.0); BLOOD UREA NITROGEN 8 mg/dL (7-18); CALCIUM 8.4 mg/dL (8.5-10.1); CHLORIDE 103 mmol/L (98-107); CO2 25 mmol/L (21-32); CREATININE 0.5 mg/dL (0.55-1.02); GLUCOSE,RANDOM 99 mg/dL (74-106); LIPASE 74 U/L (73-393); POTASSIUM 3.3 mmol/L (3.5-5.1); SGOT/AST 128 U/L (15-37); SGPT/ALT 226 U/L (12-78); SODIUM 139 mmol/L (136-145)
--- NOTE | 2017-10-22 09:02 | PN ---
Progress Note, Physician History of Present Illness: Appears comfortable, not in distress, or pain. No complaints. Slept all night, per caregiver at bedside. - Current Medication List Current Medications: Active Medications Acetaminophen (Tylenol -) 650 mg PO Q4H PRN PRN Reason: FEVER OR PAIN Last Admin: 10/21/17 21:54 Dose: 650 mg Artificial Tears (Artificial Tears) 1 drop OU TID PRN PRN Reason: DRY EYES Ertapenem 1 gm/ Sodium (Chloride) 100 mls @ 100 mls/hr IVPB DAILY [facility] PRN Reason: Protocol Lactated Ringer's (Lactated Ringers Solution) 1,000 ml in 1,000 mls @ 125 mls/ hr IV ASDIR [facility] Last Admin: 10/22/17 06:19 Dose: 125 mls/hr Nifedipine (Procardia Xl -) 60 mg PO DAILY [facility] Last Admin: 10/21/17 12:02 Dose: 60 mg Non-Formulary Medication (Cariprazine Hcl [Vraylar]) 1 each PO DAILY [facility] Pramipexole Dihydrochloride (Mirapex -) 1 mg PO BID [facility] Last Admin: 10/21/17 21:54 Dose: 1 mg - Objective Vital Signs: Vital Signs Temperature 98.3 F 10/22/17 07:13 Pulse Rate 92 H 10/22/17 07:13 Respiratory Rate 20 10/22/17 07:13 Blood Pressure 148/84 10/22/17 07:13 O2 Sat by Pulse Oximetry (%) 94 L 10/21/17 21:00 Constitutional: Yes: No Distress, Calm Gastrointestinal: Yes: Soft. No: Distention, Melena, Rectal Bleeding, Tenderness, Tenderness, Rebound, Vomiting Labs: CBC, BMP 10/22/17 06:00 INR, PTT INR 1.07 (0.82-1.09) 10/21/17 08:30 Problem List - Problems (1) Cholelithiasis with acute cholangitis Code(s): K80.20 - CALCULUS OF GALLBLADDER W/O CHOLECYSTITIS W/O OBSTRUCTION; K83.0 - CHOLANGITIS (2) Common bile duct (CBD) stricture Code(s): K83.1 - OBSTRUCTION OF BILE DUCT (3) Common bile duct (CBD) obstruction Code(s): K83.1 - OBSTRUCTION OF BILE DUCT Assessment/Plan Non-toxic appearance and comfortable this am. Kateive cbd stenting. Consider Dr. Eber Mercado at [facility] Follow today's labs
[2017-10-22] MEDS: NIFEdipine E.R 60 MG TABLET (UD) PO SCH (10:40)
[2017-10-22] MEDS: PRAMIPEXOLE DIHYDROCHLORIDE 1 MG TABLET PO SCH ×2 (10:40→21:51)
[2017-10-22] MEDS ORDERED: POTASSIUM CHLORIDE TABS 20 MEQ TABLET.ER (FP) PO ONE ×2 (10:45→14:45)
--- NOTE | 2017-10-22 12:34 | PN ---
Progress Note (short form) - Note Progress Note: ERCP yesterday- stent placed - malignant distal CBD stricture she is alert and comfortable ate some breakfast Vital Signs Period Temp Pulse Resp BP Sys/Soriano Pulse Ox Last 24 Hr 98.2 F-100.2 F 78-100 16-20 139-162/70-84 94-100 cor-rrr llungs decreased bs at bases abd soft,nt ext no edema CBC, BMP 10/22/17 06:00 10/22/17 06:00 Microbiology 10/19/17 00:30 Blood - Peripheral Venous Blood Culture - Preliminary NO GROWTH OBTAINED AFTER 72 HOURS, INCUBATION TO CONTINUE FOR 2 DAYS. 10/19/17 00:30 Blood - Peripheral Venous Blood Culture - Preliminary NO GROWTH OBTAINED AFTER 72 HOURS, INCUBATION TO CONTINUE FOR 2 DAYS. 10/19/17 01:56 Urine - Urine Clean Catch Urine Culture - Final Escherichia Coli 10/19/17 01:00 Nasopharyngeal Swab Influenza Types A,B Antigen (DAVID) - Final 10/19/17 01:00 Nasopharyngeal Swab - Final a/p sepsis UTI CHolangitis-palliative stenting done yesterday Pen allergy Dementia change to ertapenem-day #4 antibiotics if afebrile in am, can switch to po macrobid to finish 7 days for uti
--- NOTE | 2017-10-22 12:39 | PN ---
Progress Note (short form) - Note Progress Note: Anesthesiology Post-op POD#1 s/p ERCP under GA. Pt. resting comfortably in bed. Tolerating PO. Pain well managed. VSS.
--- NOTE | 2017-10-22 13:37 | PN ---
Teaching Attending Note Name of Resident: Nick Domínguez ATTENDING PHYSICIAN STATEMENT I saw and evaluated the patient. I reviewed the resident's note and discussed the case with the resident. I agree with the resident's findings and plan as documented. SUBJECTIVE: Patient is comfortable with no acute distress, no fever or chills, no shortness of breath. No nausea or vomiting, no headache. OBJECTIVE: Vital Signs Temperature 98.3 F 10/22/17 07:13 Pulse Rate 92 H 10/22/17 07:13 Respiratory Rate 20 10/22/17 07:13 Blood Pressure 148/84 10/22/17 07:13 O2 Sat by Pulse Oximetry (%) 94 L 10/21/17 21:00 PE: per resident's note CVS: S1S2 positive, PAKO 2/6 , no gallop. abdomen: soft, NT, NR, ND Ext: positive for pulses Neuro: awake, alert. CN2-12 grossly intact. CBCD WBC 10.8 K/mm3 (4.0-10.0) H 10/22/17 06:00 RBC 3.99 M/mm3 (3.60-5.2) 10/22/17 06:00 Hgb 12.6 GM/dL (10.7-15.3) 10/22/17 06:00 Hct 38.2 % (32.4-45.2) 10/22/17 06:00 MCV 95.6 fl (80-96) 10/22/17 06:00 MCHC 33.0 g/dl (32.0-36.0) 10/22/17 06:00 RDW 13.1 % (11.6-15.6) 10/22/17 06:00 Plt Count 262 K/MM3 (134-434) 10/22/17 06:00 MPV 9.0 fl (7.5-11.1) 10/22/17 06:00 CMP Sodium 139 mmol/L (136-145) 10/22/17 06:00 Potassium 3.3 mmol/L (3.5-5.1) L 10/22/17 06:00 Chloride 103 mmol/L (98-107) 10/22/17 06:00 Carbon Dioxide 25 mmol/L (21-32) 10/22/17 06:00 Anion Gap 11 (8-16) 10/22/17 06:00 BUN 8 mg/dL (7-18) D 10/22/17 06:00 Creatinine 0.5 mg/dL (0.55-1.02) L 10/22/17 06:00 Creat Clearance w eGFR > 60 (>60) 10/22/17 06:00 Random Glucose 99 mg/dL (74-106) D 10/22/17 06:00 Calcium 8.4 mg/dL (8.5-10.1) L 10/22/17 06:00 Total Bilirubin 2.1 mg/dL (0.2-1.0) H D 10/22/17 06:00 AST 128 U/L (15-37) H D 10/22/17 06:00 ALT 226 U/L (12-78) H 10/22/17 06:00 Alkaline Phosphatase 504 U/L (45-117) H 10/22/17 06:00 Total Protein 6.0 g/dl (6.4-8.2) L 10/22/17 06:00 Albumin 2.7 g/dl (3.4-5.0) L 10/22/17 06:00 CARDIAC ENZYMES Creatine Kinase 124 IU/L (26-192) 10/19/17 00:30 Troponin I < 0.02 ng/ml (0.00-0.05) 10/19/17 00:30 Current Medications Generic Name Dose Route Start Last Admin Trade Name Freq PRN Reason Stop Dose Admin Acetaminophen 650 mg 10/19/17 05:30 10/21/17 21:54 Tylenol - PO 650 mg Q4H PRN Administration FEVER OR PAIN Artificial Tears 1 drop 10/19/17 07:33 Artificial Tears OU TID PRN DRY EYES Ertapenem 1 gm/ Sodium 100 mls @ 100 mls/hr 10/21/17 12:19 10/22/17 10:33 Chloride IVPB 100 mls/hr DAILY [facility] Administration Protocol Lactated Ringer's 1,000 ml in 1,000 mls @ 125 mls/hr 10/21/17 15:15 10/22/17 06:19 Lactated Ringers Solution IV 125 mls/hr ASDIR [facility] Administration Nifedipine 60 mg 10/19/17 10:00 10/22/17 10:40 Procardia Xl - PO 60 mg DAILY [facility] Administration Non-Formulary Medication 1 each 10/19/17 10:00 Cariprazine Hcl [Vraylar] PO DAILY [facility] Potassium Chloride 40 meq 10/22/17 14:45 K-Dur - PO 10/22/17 14:46 ONCE ONE Pramipexole Dihydrochloride 1 mg 10/19/17 10:00 10/22/17 10:40 Mirapex - PO 1 mg BID [facility] Administration Home Medications Medication Instructions Recorded Acetaminophen [Mapap] 1,000 mg PO BID 11/17/16 Cariprazine HCl [Vraylar] 1.5 mg PO DAILY 11/17/16 Nifedipine [Nifedical Xl] 60 mg PO DAILY 11/17/16 Pramipexole Dihydrochloride 1 mg PO BID 11/17/16 [Mirapex -] Microbiology 10/19/17 00:30 Blood - Peripheral Venous Blood Culture - Preliminary NO GROWTH OBTAINED AFTER 72 HOURS, INCUBATION TO CONTINUE FOR 2 DAYS. 10/19/17 00:30 Blood - Peripheral Venous Blood Culture - Preliminary NO GROWTH OBTAINED AFTER 72 HOURS, INCUBATION TO CONTINUE FOR 2 DAYS. 10/19/17 01:56 Urine - Urine Clean Catch Urine Culture - Final Escherichia Coli 10/19/17 01:00 Nasopharyngeal Swab Influenza Types A,B Antigen (DAVID) - Final 10/19/17 01:00 Nasopharyngeal Swab - Final Ct abdomen and pelvis: prominent pancreatic head suspesious for pancreatic mass , distended gall bladder containing calculi. 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 # s/p sepsis: most likely due to UTI/cholangitis continue Ertapenem #4 , patient is allergic to PCN , so far blood culture is negative , on IVF continue # Elevated LFTs: As per CT scan of abdomen reported prominent pancreatic head mass s/p ERCP. As per findings reported in his notes GI Procedure Note: Please see ERCP report. A malignant appearing distal CBD stricture with proximal dilation was noted suggesting a pancreatic cancer vs cholangiocarcinoma. Brushings were taken and a 7Fr stent inserted palliatively. Patient is being transferred to a tertiary care center with EUS and a repeat ERCP to place a metallic stent. [facility] . mRCP was attempted but patient is not cooperative. consulted palliative care for hospice evaluation , trend LFTs. # H/o HTN: cont home nifedipine. DVT PX: hold Sq heparin x 48 hrs after procedure DnR/DNI.
[2017-10-22 14:11] LABS: HBSAG SCREEN Negative (Negative); HEP A AB, IGM Negative (Negative); HEP B CORE AB, TOT Negative (Negative)
[2017-10-22 14:23] LABS: ACANTHOCYTES 0; ANISOCYTOSIS 0; HELMET CELLS 0; HOWELL-JOLLY BODIES 0; MACROCYTOSIS 0; OVALOCYTE 0; PLATELET ESTIMATE NORMAL; SICKELED CELLS 0; TARGET CELLS 0; TEAR DROP CELLS 0; TOXIC GRANULATION 0
--- NOTE | 2017-10-22 16:18 | PN ---
Physical Exam: SUBJECTIVE: Patient seen and examined This am, pt denies fevers, chills, chest pain, SOB, abdominal pain, n/v/d/c, and dysuria. OBJECTIVE: Vital Signs Period Temp Pulse Resp BP Sys/Soriano Pulse Ox Last 24 Hr 98.3 F-100.2 F 78-100 18-20 148-157/77-86 94 GENERAL: elderly female, in NAD, AAOx1 (name) HEENT: NC, AT NECK: Normal range of motion, supple without lymphadenopathy, JVD, or masses. LUNGS: Breath sounds equal, clear to auscultation bilaterally. No wheezes, and no crackles. No accessory muscle use. HEART: normal rate and rhythm, + systolic murmur ABDOMEN: ND, normoactive BS, soft, NT MUSCULOSKELETAL: trace b/l LE edema, tender to palpation b/l NEUROLOGICAL: Cranial nerves II-XII intact. Normal speech. Laboratory Results - last 24 hr 10/19/17 10/20/17 10/22/17 06:56 05:35 06:00 WBC RBC Hgb Hct MCV MCH MCHC RDW Plt Count MPV Neutrophils % Neutrophils % (Manual) Band Neutrophils % Lymphocytes % Lymphocytes % (Manual) Monocytes % (Manual) Eosinophils % (Manual) Basophils % (Manual) Myelocytes % (Man) Metamyelocytes Hypochromia Toxic Granulation Dohle Bodies Platelet Estimate Polychromasia Poikilocytosis Basophilic Stippling Anisocytosis Microcytosis Macrocytosis Spherocytes Sickle Cells Target Cells Tear Drop Cells Ovalocytes Stomatocytes Helmet Cells [place]ll[place] Bodies [place] Rings Darius Cells Acanthocytes (Spur) Fragmented RBCs Schistocytes PT with INR INR Sodium 139 Potassium 3.3 L Chloride 103 Carbon Dioxide 25 Anion Gap 11 BUN 8 D Creatinine 0.5 L Creat Clearance w eGFR > 60 Random Glucose 99 D Calcium 8.4 L Total Bilirubin 2.1 H D Direct Bilirubin 1.4 H D AST 128 H D ALT 226 H Alkaline Phosphatase 504 H C-Reactive Protein 5.2 H D Total Protein 6.0 L Albumin 2.7 L Total Amylase 16 L D Lipase 74 CA 19-9 Antigen 62 H Hep A IgM Ab Confirm Negative Hepatitis A Ab Total Positive H Hep Bs Antigen Negative Hep Bs Antibody Non reactive Hep B Core Total Ab Negative 10/22/17 10/22/17 10/22/17 06:00 06:00 06:00 WBC 10.8 H RBC 3.99 Hgb 12.6 Hct 38.2 MCV 95.6 MCH 31.5 MCHC 33.0 RDW 13.1 Plt Count 262 MPV 9.0 Neutrophils % No Result Required. Neutrophils % (Manual) 82.0 Band Neutrophils % 0.0 Lymphocytes % No Result Required. Lymphocytes % (Manual) 12.0 Monocytes % (Manual) 6 Eosinophils % (Manual) 0.0 Basophils % (Manual) 0.0 Myelocytes % (Man) 0 Metamyelocytes 0 Hypochromia 0 Toxic Granulation 0 Dohle Bodies 0 Platelet Estimate Normal Polychromasia 0 Poikilocytosis 0 Basophilic Stippling 0 Anisocytosis 0 Microcytosis 0 Macrocytosis 0 Spherocytes 0 Sickle Cells 0 Target Cells 0 Tear Drop Cells 0 Ovalocytes 0 Stomatocytes 0 Helmet Cells 0 [place] Bodies 0 [place] Rings 0 Darius Cells 0 Acanthocytes (Spur) 0 Fragmented RBCs 0 Schistocytes 0 PT with INR 12.20 H INR 1.08 Sodium Cancelled Potassium Cancelled Chloride Cancelled Carbon Dioxide Cancelled Anion Gap Cancelled BUN Cancelled Creatinine Cancelled Creat Clearance w eGFR Cancelled Random Glucose Cancelled Calcium Cancelled Total Bilirubin Cancelled Direct Bilirubin AST Cancelled ALT Cancelled Alkaline Phosphatase Cancelled C-Reactive Protein Total Protein Cancelled Albumin Cancelled Total Amylase Lipase CA 19-9 Antigen Hep A IgM Ab Confirm Hepatitis A Ab Total Hep Bs Antigen Hep Bs Antibody Hep B Core Total Ab Active Medications Generic Name Dose Route Start Last Admin Trade Name Freq PRN Reason Stop Dose Admin Acetaminophen 650 mg 10/19/17 05:30 10/21/17 21:54 Tylenol - PO 650 mg Q4H PRN Administration FEVER OR PAIN Artificial Tears 1 drop 10/19/17 07:33 Artificial Tears OU TID PRN DRY EYES Ertapenem 1 gm/ Sodium 100 mls @ 100 mls/hr 10/21/17 12:19 10/22/17 10:33 Chloride IVPB 100 mls/hr DAILY [facility] Administration Protocol Sodium Chloride 1,000 mls @ 75 mls/hr 10/22/17 15:45 Normal Saline - IV ASDIR [facility] Nifedipine 60 mg 10/19/17 10:00 10/22/17 10:40 Procardia Xl - PO 60 mg DAILY [facility] Administration Non-Formulary Medication 1 each 10/19/17 10:00 Cariprazine Hcl [Vraylar] PO DAILY [facility] Pramipexole Dihydrochloride 1 mg 10/19/17 10:00 10/22/17 10:40 Mirapex - PO 1 mg BID [facility] Administration ASSESSMENT/PLAN: 82F w/ hx of UTI with ESBL E. coli, dementia, HTN, spinal stenosis, and DVT/PE who presents to the emergency department via EMS from [address] [place] [address] with fever, found to have tachycardia, leukocytosis, lactic acidosis elevated LFTs, and UA consistent with UTI. #sepsis -likely 2/2 UTI -lactic acidosis resolved -normal saline @ 83cc/hr -ID on board, abx changed to ertapenem. If afebrile musa, can continue macrobid for 2 more days to finish 7 day course of abx. -Ucx: E. coli -Bcx: nothing for 72 hours -trend wbc and temps #abnormal LFTs -s/p ERCP on 10/21 which showed malignant appearing distal CBD stricture suggesting pancreatic vs. cholangiocarcinoma. Brushings and 7FR stent inserted. Will need tertiary care center EUS and repeat ERCP with metallic stent placement. -CA-19-9: elevated at 62 -pt accepted for transfer to [facility] for EUS and metallic stent placement #dementia -continue home cariprazine #HTN -continue home nifedipine #FEN/ppx -normal saline @ 83cc/hr -K repleted -regular diet -no GI ppx -SCDs as pt just had ERCP #Dispo -awaiting bed availability at [facility] for transfer. Case discussed with attending, Dr. Xiong. -Nick Domínguez MD PGY1 Visit type - Emergency Visit Emergency Visit: Yes ED Registration Date: 10/19/17 Care time: The patient presented to the Emergency Department on the above date and was hospitalized for further evaluation of their emergent condition. - New Patient This patient is new to me today: No - Critical Care Critical Care patient: No
[2017-10-22] MEDS ORDERED: PT OWN MED DRAWER 7, Y5N ONE (16:25)
[2017-10-22] MEDS: SODIUM CHLORIDE 1,000 ML IV SCH (21:50)
[2017-10-23] MEDS: SODIUM CHLORIDE 1,000 ML IV SCH ×2 (06:56→17:54)
[2017-10-23] MEDS ORDERED: PT OWN MED DRAWER 7, Y5N ONE ×3 (08:34→20:16)
[2017-10-23 08:43] LABS: BASO % 0.5 % (0-2.0); EOS % 1.9 % (0-4.5); HEMATOCRIT 36.5 % (32.4-45.2); HEMOGLOBIN 12.1 GM/dL (10.7-15.3); LYMPH % 19.6 % (8-40); MCH 31.9 pg (25.7-33.7); MCHC 33.3 g/dl (32.0-36.0); MEAN CELL VOLUME 95.7 fl (80-96); MEAN PLT VOLUME 8.6 fl (7.5-11.1); MONO % 12.5 % (3.8-10.2); NEUT % 65.5 % (42.8-82.8); PLATELET COUNT 254 K/MM3 (134-434); RBC 3.81 M/mm3 (3.60-5.2); WHITE BLOOD COUNT 10.1 K/mm3 (4.0-10.0)
[2017-10-23 08:57] LABS: INR 1.06 (0.82-1.09)
[2017-10-23 09:18] LABS: ALBUMIN 2.6 g/dl (3.4-5.0); ANION GAP 9 (8-16); BILIRUBIN,DIRECT 0.9 mg/dL (0.0-0.2); BLOOD UREA NITROGEN 9 mg/dL (7-18); CALCIUM 8.2 mg/dL (8.5-10.1); CHLORIDE 104 mmol/L (98-107); CO2 28 mmol/L (21-32); CREATININE 0.5 mg/dL (0.55-1.02); GLUCOSE,RANDOM 111 mg/dL (74-106); POTASSIUM 3.3 mmol/L (3.5-5.1); SGOT/AST 80 U/L (15-37); SODIUM 141 mmol/L (136-145)
[2017-10-23 09:20] LABS: ALK PHOS 415 U/L (45-117); BILIRUBIN,TOTAL 1.6 mg/dL (0.2-1.0); SGPT/ALT 169 U/L (12-78); TOT PROT 6.1 g/dl (6.4-8.2)
--- NOTE | 2017-10-23 09:37 | PN ---
Progress Note (short form) - Note Progress Note: ID Ertepenem Selected Entries 10/23/17 07:07 Temperature 98 F Pulse Rate 89 Respiratory 20 Rate Blood Pressure 169/82 Microbiology 10/19/17 01:56 Urine - Urine Clean Catch Urine Culture - Final Escherichia Coli 10/19/17 00:30 Blood - Peripheral Venous Blood Culture - Preliminary NO GROWTH OBTAINED AFTER 96 HOURS, INCUBATION TO CONTINUE FOR 1 DAYS. 10/19/17 00:30 Blood - Peripheral Venous Blood Culture - Preliminary NO GROWTH OBTAINED AFTER 96 HOURS, INCUBATION TO CONTINUE FOR 1 DAYS. Laboratory Tests 10/23/17 10/23/17 08:00 08:00 WBC 10.1 H Hgb 12.1 BUN 9 Creatinine 0.5 L Assessment Treat UTI Plan Macrobid as suggested Carin EDWARDS
[2017-10-23] MEDS ORDERED: POTASSIUM CHLORIDE TABS 20 MEQ TABLET.ER (FP) PO ONE ×2 (09:48→14:48)
--- NOTE | 2017-10-23 11:09 | PN ---
Physical Exam: SUBJECTIVE: Patient seen and examined No acute events overnight. Pt complaining of mild headache and mild nausea. She denies chest pain, SOB, abdominal pain, emesis, constipation, diarrhea, and dysuria. OBJECTIVE: Vital Signs Period Temp Pulse Resp BP Sys/Soriano Pulse Ox Last 24 Hr 98 F-99.1 F 78-99 18-20 138-169/67-82 94 GENERAL: elderly female, in NAD, AAOx1 (name) HEENT: NC, AT NECK: Normal range of motion, supple without lymphadenopathy, JVD, or masses. LUNGS: Breath sounds equal, clear to auscultation bilaterally. No wheezes, and no crackles. No accessory muscle use. HEART: normal rate and rhythm, + systolic murmur ABDOMEN: ND, normoactive BS, soft, NT MUSCULOSKELETAL: trace b/l LE edema NEUROLOGICAL: Cranial nerves II-XII intact. Normal speech. Laboratory Results - last 24 hr 10/19/17 10/22/17 10/22/17 06:56 06:00 06:00 WBC RBC Hgb Hct MCV MCH MCHC RDW Plt Count MPV Neutrophils % Neutrophils % (Manual) 82.0 Band Neutrophils % 0.0 Lymphocytes % Lymphocytes % (Manual) 12.0 Monocytes % Monocytes % (Manual) 6 Eosinophils % Eosinophils % (Manual) 0.0 Basophils % Basophils % (Manual) 0.0 Myelocytes % (Man) 0 Metamyelocytes 0 Hypochromia 0 Toxic Granulation 0 Dohle Bodies 0 Platelet Estimate Normal Polychromasia 0 Poikilocytosis 0 Basophilic Stippling 0 Anisocytosis 0 Microcytosis 0 Macrocytosis 0 Spherocytes 0 Sickle Cells 0 Target Cells 0 Tear Drop Cells 0 Ovalocytes 0 Stomatocytes 0 Helmet Cells 0 Arell[place] Bodies 0 [place] Rings 0 [place] Cells 0 Acanthocytes (Spur) 0 Fragmented RBCs 0 Schistocytes 0 PT with INR INR Sodium Cancelled Potassium Cancelled Chloride Cancelled Carbon Dioxide Cancelled Anion Gap Cancelled BUN Cancelled Creatinine Cancelled Creat Clearance w eGFR Cancelled Random Glucose Cancelled Calcium Cancelled Total Bilirubin Cancelled Direct Bilirubin AST Cancelled ALT Cancelled Alkaline Phosphatase Cancelled Total Protein Cancelled Albumin Cancelled Hep A IgM Ab Confirm Negative Hepatitis A Ab Total Positive H Hep Bs Antigen Negative Hep Bs Antibody Non reactive Hep B Core Total Ab Negative 10/23/17 10/23/17 10/23/17 08:00 08:00 08:00 WBC 10.1 H RBC 3.81 Hgb 12.1 Hct 36.5 MCV 95.7 MCH 31.9 MCHC 33.3 RDW 13.0 Plt Count 254 MPV 8.6 Neutrophils % 65.5 Neutrophils % (Manual) Band Neutrophils % Lymphocytes % 19.6 Lymphocytes % (Manual) Monocytes % 12.5 H Monocytes % (Manual) Eosinophils % 1.9 Eosinophils % (Manual) Basophils % 0.5 Basophils % (Manual) Myelocytes % (Man) Metamyelocytes Hypochromia Toxic Granulation Dohle Bodies Platelet Estimate Polychromasia Poikilocytosis Basophilic Stippling Anisocytosis Microcytosis Macrocytosis Spherocytes Sickle Cells Target Cells Tear Drop Cells Ovalocytes Stomatocytes Helmet Cells Arell[place] Bodies [place] Rings Darius Cells Acanthocytes (Spur) Fragmented RBCs Schistocytes PT with INR 12.00 H INR 1.06 Sodium 141 Potassium 3.3 L Chloride 104 Carbon Dioxide 28 Anion Gap 9 BUN 9 Creatinine 0.5 L Creat Clearance w eGFR > 60 Random Glucose 111 H Calcium 8.2 L Total Bilirubin 1.6 H D Direct Bilirubin 0.9 H D AST 80 H D ALT 169 H D Alkaline Phosphatase 415 H Total Protein 6.1 L Albumin 2.6 L Hep A IgM Ab Confirm Hepatitis A Ab Total Hep Bs Antigen Hep Bs Antibody Hep B Core Total Ab Active Medications Generic Name Dose Route Start Last Admin Trade Name Freq PRN Reason Stop Dose Admin Acetaminophen 650 mg 10/19/17 05:30 10/21/17 21:54 Tylenol - PO 650 mg Q4H PRN Administration FEVER OR PAIN Artificial Tears 1 drop 10/19/17 07:33 Artificial Tears OU TID PRN DRY EYES Sodium Chloride 1,000 mls @ 75 mls/hr 10/22/17 15:45 10/23/17 06:56 Normal Saline - IV 75 mls/hr ASDIR [facility] Administration Nifedipine 60 mg 10/19/17 10:00 10/22/17 10:40 Procardia Xl - PO 60 mg DAILY [facility] Administration Nitrofurantoin Macrocrystals 50 mg 10/23/17 12:00 Macrodantin - PO Q6HPO [facility] Non-Formulary Medication 1 each 10/19/17 10:00 Cariprazine Hcl [Vraylar] PO DAILY [facility] Potassium Chloride 40 meq 10/23/17 14:48 K-Dur - PO 10/23/17 14:49 ONCE ONE Pramipexole Dihydrochloride 1 mg 10/19/17 10:00 10/22/17 21:51 Mirapex - PO 1 mg BID [facility] Administration ASSESSMENT/PLAN: 82F w/ hx of UTI with ESBL E. coli, dementia, HTN, spinal stenosis, and DVT/PE who presents to the emergency department via EMS from [address] [place] [address] with fever, found to have tachycardia, leukocytosis, lactic acidosis elevated LFTs, and UA consistent with UTI. #sepsis -likely 2/2 UTI -normal saline @ 83cc/hr -ID on board. changed from ertapenem to macrobid -Ucx: E. coli -Bcx: nothing for 96 hours -trend wbc and temps #abnormal LFTs -s/p ERCP on 10/21 which showed malignant appearing distal CBD stricture suggesting pancreatic vs. cholangiocarcinoma. Brushings and 7FR stent inserted. Will need tertiary care center EUS and repeat ERCP with metallic stent placement. -CA-19-9: elevated at 62 -pt accepted for transfer to [facility] for EUS and metallic stent placement #dementia -continue home cariprazine #HTN -continue home nifedipine #FEN/ppx -normal saline @ 83cc/hr -K repleted -regular diet -no GI ppx -SCDs as pt just had ERCP #Dispo -awaiting bed availability at [facility] for transfer. Case discussed with attending, Dr. Xiong. -Nick Domínguez MD PGY1 Visit type - Emergency Visit Emergency Visit: Yes ED Registration Date: 10/19/17 Care time: The patient presented to the Emergency Department on the above date and was hospitalized for further evaluation of their emergent condition. - New Patient This patient is new to me today: No - Critical Care Critical Care patient: No
--- NOTE | 2017-10-23 11:47 | PN ---
Progress Note, Physician History of Present Illness: Appears comfortable, not in distress, or pain. - Current Medication List Current Medications: Active Medications Acetaminophen (Tylenol -) 650 mg PO Q4H PRN PRN Reason: FEVER OR PAIN Last Admin: 10/21/17 21:54 Dose: 650 mg Artificial Tears (Artificial Tears) 1 drop OU TID PRN PRN Reason: DRY EYES Sodium Chloride (Normal Saline -) 1,000 mls @ 75 mls/hr IV ASDIR [facility] Last Admin: 10/23/17 06:56 Dose: 75 mls/hr Nifedipine (Procardia Xl -) 60 mg PO DAILY [facility] Last Admin: 10/22/17 10:40 Dose: 60 mg Nitrofurantoin Macrocrystals (Macrodantin -) 50 mg PO Q6HPO [facility] Non-Formulary Medication (Cariprazine Hcl [Vraylar]) 1 each PO DAILY [facility] Potassium Chloride (K-Dur -) 40 meq PO ONCE ONE Stop: 10/23/17 14:49 Pramipexole Dihydrochloride (Mirapex -) 1 mg PO BID [facility] Last Admin: 10/22/17 21:51 Dose: 1 mg - Objective Vital Signs: Vital Signs Temperature 98 F 10/23/17 07:07 Pulse Rate 89 10/23/17 07:07 Respiratory Rate 20 10/23/17 07:07 Blood Pressure 169/82 10/23/17 07:07 O2 Sat by Pulse Oximetry (%) 94 L 10/22/17 21:00 Gastrointestinal: Yes: Soft. No: Melena, Rectal Bleeding, Tenderness, Tenderness, Epigastrium, Tenderness, Rebound, Vomiting Neurological: Yes: Alert Labs: CBC, BMP 10/23/17 08:00 10/23/17 08:00 INR, PTT INR 1.06 (0.82-1.09) 10/23/17 08:00 Abnormal Lab Results 10/19/17 10/23/17 10/23/17 06:56 08:00 08:00 WBC 10.1 H Monocytes % 12.5 H PT with INR 12.00 H Potassium Creatinine Random Glucose Calcium Total Bilirubin Direct Bilirubin AST ALT Alkaline Phosphatase Total Protein Albumin Hepatitis A Ab Total Positive H 10/23/17 08:00 WBC Monocytes % PT with INR Potassium 3.3 L Creatinine 0.5 L Random Glucose 111 H Calcium 8.2 L Total Bilirubin 1.6 H D Direct Bilirubin 0.9 H D AST 80 H D ALT 169 H D Alkaline Phosphatase 415 H Total Protein 6.1 L Albumin 2.6 L Hepatitis A Ab Total Problem List - Problems (1) Cholelithiasis with acute cholangitis Code(s): K80.20 - CALCULUS OF GALLBLADDER W/O CHOLECYSTITIS W/O OBSTRUCTION; K83.0 - CHOLANGITIS (2) Common bile duct (CBD) stricture Code(s): K83.1 - OBSTRUCTION OF BILE DUCT (3) Common bile duct (CBD) obstruction Code(s): K83.1 - OBSTRUCTION OF BILE DUCT Assessment/Plan Non-toxic appearance and comfortable Paliative cbd stenting. [facility] Follow today's labs
[2017-10-23] MEDS: NIFEdipine E.R 60 MG TABLET (UD) PO SCH (11:51)
[2017-10-23] MEDS: PRAMIPEXOLE DIHYDROCHLORIDE 1 MG TABLET PO SCH (11:52)
[2017-10-23] MEDS: NITROFURANTOIN MACROCRYSTAL 50 MG CAPSULE (FP) PO SCH ×2 (11:54→17:57)
--- NOTE | 2017-10-23 13:29 | PATH ---
Cytology Non-Gynecological Report Patient Name: LIDIA PERES Med. Rec. #: [id number] /Age/Gender: 1935 (Age: 82) / F Account: [id number] Location: [facility] MED/SURG Taken: 10/21/2017 Received: 10/22/2017 Reported: 10/23/2017 Physicians: Jer Yousif M.D. Specimen(s) Received BILE DUCT BRUSH Clinical History Stricture of common bile duct, pancreatic versus cholangiocarcinoma Final Diagnosis BILE DUCT BRUSHING FOR CYTOLOGY: NEGATIVE FOR MALIGNANT CELLS. FEW CLUSTERS AND RARE FRAGMENT OF GLANDULAR EPITHELIUM. SIGNIFICANT CYTOLOGIC ATYPIA IS NOT IDENTIFIED. Comment: Suggest clinical/radiological correlation. Electronically Signed Maria Esther Dia M.D. Gross Description Received is a cyto brush and one alcohol fixed slide. Two additional slides prepared and Pap stained.
--- NOTE | 2017-10-23 20:17 | PN ---
Teaching Attending Note Name of Resident: Nick Domínguez ATTENDING PHYSICIAN STATEMENT I saw and evaluated the patient. I reviewed the resident's note and discussed the case with the resident. I agree with the resident's findings and plan as documented. SUBJECTIVE: Patient feels comfortable, denies any chest pain, SOB, abdominal pain, emesis, constipation, diarrhea, and dysuria. OBJECTIVE: Vital Signs Temperature 98.5 F 10/23/17 15:37 Pulse Rate 81 10/23/17 15:37 Respiratory Rate 18 10/23/17 15:37 Blood Pressure 147/75 10/23/17 15:37 O2 Sat by Pulse Oximetry (%) 94 L 10/22/17 21:00 CBCD WBC 10.1 K/mm3 (4.0-10.0) H 10/23/17 08:00 RBC 3.81 M/mm3 (3.60-5.2) 10/23/17 08:00 Hgb 12.1 GM/dL (10.7-15.3) 10/23/17 08:00 Hct 36.5 % (32.4-45.2) 10/23/17 08:00 MCV 95.7 fl (80-96) 10/23/17 08:00 MCHC 33.3 g/dl (32.0-36.0) 10/23/17 08:00 RDW 13.0 % (11.6-15.6) 10/23/17 08:00 Plt Count 254 K/MM3 (134-434) 10/23/17 08:00 MPV 8.6 fl (7.5-11.1) 10/23/17 08:00 CMP Sodium 141 mmol/L (136-145) 10/23/17 08:00 Potassium 3.3 mmol/L (3.5-5.1) L 10/23/17 08:00 Chloride 104 mmol/L (98-107) 10/23/17 08:00 Carbon Dioxide 28 mmol/L (21-32) 10/23/17 08:00 Anion Gap 9 (8-16) 10/23/17 08:00 BUN 9 mg/dL (7-18) 10/23/17 08:00 Creatinine 0.5 mg/dL (0.55-1.02) L 10/23/17 08:00 Creat Clearance w eGFR > 60 (>60) 10/23/17 08:00 Random Glucose 111 mg/dL (74-106) H 10/23/17 08:00 Calcium 8.2 mg/dL (8.5-10.1) L 10/23/17 08:00 Total Bilirubin 1.6 mg/dL (0.2-1.0) H D 10/23/17 08:00 AST 80 U/L (15-37) H D 10/23/17 08:00 ALT 169 U/L (12-78) H D 10/23/17 08:00 Alkaline Phosphatase 415 U/L (45-117) H 10/23/17 08:00 Total Protein 6.1 g/dl (6.4-8.2) L 10/23/17 08:00 Albumin 2.6 g/dl (3.4-5.0) L 10/23/17 08:00 CARDIAC ENZYMES Creatine Kinase 124 IU/L (26-192) 10/19/17 00:30 Troponin I < 0.02 ng/ml (0.00-0.05) 10/19/17 00:30 Current Medications Generic Name Dose Route Start Last Admin Trade Name Freq PRN Reason Stop Dose Admin Acetaminophen 650 mg 10/19/17 05:30 10/21/17 21:54 Tylenol - PO 650 mg Q4H PRN Administration FEVER OR PAIN Artificial Tears 1 drop 10/19/17 07:33 Artificial Tears OU TID PRN DRY EYES Sodium Chloride 1,000 mls @ 75 mls/hr 10/22/17 15:45 10/23/17 17:54 Normal Saline - IV Not Given ASDIR [facility] Nifedipine 60 mg 10/19/17 10:00 10/23/17 11:51 Procardia Xl - PO 60 mg DAILY [facility] Administration Nitrofurantoin Macrocrystals 50 mg 10/23/17 12:00 10/23/17 17:57 Macrodantin - PO 50 mg Q6HPO [facility] Administration Non-Formulary Medication 1 each 10/19/17 10:00 Cariprazine Hcl [Vraylar] PO DAILY [facility] Pramipexole Dihydrochloride 1 mg 10/19/17 10:00 10/23/17 11:52 Mirapex - PO 1 mg BID [facility] Administration Home Medications Medication Instructions Recorded Cariprazine HCl [Vraylar] 1.5 mg PO DAILY 11/17/16 Nifedipine [Nifedical Xl] 60 mg PO DAILY 11/17/16 Pramipexole Dihydrochloride 1 mg PO BID 11/17/16 [Mirapex -] Polyvinyl Alcohol [Artificial 1 drop OU TID PRN drops 10/22/17 Tears] 10/19/17 00:30 Blood - Peripheral Venous Blood Culture - Preliminary NO GROWTH OBTAINED AFTER 72 HOURS, INCUBATION TO CONTINUE FOR 2 DAYS. 10/19/17 00:30 Blood - Peripheral Venous Blood Culture - Preliminary NO GROWTH OBTAINED AFTER 72 HOURS, INCUBATION TO CONTINUE FOR 2 DAYS. 10/19/17 01:56 Urine - Urine Clean Catch Urine Culture - Final Escherichia Coli 10/19/17 01:00 Nasopharyngeal Swab Influenza Types A,B Antigen (DAVID) - Final 10/19/17 01:00 Nasopharyngeal Swab - Final Ct abdomen and pelvis: prominent pancreatic head suspesious for pancreatic mass , distended gall bladder containing calculi. PE: per resident's note ASSESSMENT AND PLAN: Patient is a 82 y/o female with h/o HTN, dementia, spinal stenosis, Hx of DVT/ PE ( not in [facility] records), who was brought in form [place] due to haVING fever and was admitted for having sepsis. # s/p sepsis: most likely due to UTI/cholangitis s/p Ertapenem x 4 days , sensitivity is back sensitive to Nitrofurantoin day #1 , patient is allergic to PCN , so far blood culture is negative , on IVF continue # Elevated LFTs: As per CT scan of abdomen reported prominent pancreatic head mass s/p ERCP. As per findings reported in his notes GI Procedure Note: Please see ERCP report. A malignant appearing distal CBD stricture with proximal dilation was noted suggesting a pancreatic cancer vs cholangiocarcinoma. Brushings were taken and a 7Fr stent inserted palliatively. Patient is being transferred to a tertiary care center with EUS and a repeat ERCP to place a metallic stent. Patient is being arranged to [place] to [facility].under Dr.sammy Mercado's service . mRCP was attempted but patient is not cooperative. consulted palliative care for hospice evaluation , trend LFTs. Will need tertiary care center EUS and repeat ERCP with metallic stent placement. CA-19-9: elevated at 62, pt is being transferred to [facility] for EUS and metallic stent placement once bed is available # H/o HTN: cont home nifedipine. DVT PX: Heparin DnR/DNI.
[2017-10-24] MEDS: NITROFURANTOIN MACROCRYSTAL 50 MG CAPSULE (FP) PO SCH ×4 (00:46→17:46)
[2017-10-24] MEDS: PRAMIPEXOLE DIHYDROCHLORIDE 1 MG TABLET PO SCH ×2 (00:46→11:15)
[2017-10-24] MEDS ORDERED: NIFEdipine E.R. 30 MG TABLET (FP) PO ONE (02:15)
[2017-10-24 08:29] LABS: BASO % 0.3 % (0-2.0); EOS % 2.2 % (0-4.5); HEMATOCRIT 37.4 % (32.4-45.2); HEMOGLOBIN 12.4 GM/dL (10.7-15.3); LYMPH % 22.5 % (8-40); MCH 31.6 pg (25.7-33.7); MCHC 33.2 g/dl (32.0-36.0); MEAN CELL VOLUME 95.3 fl (80-96); MEAN PLT VOLUME 8.9 fl (7.5-11.1); MONO % 13.1 % (3.8-10.2); NEUT % 61.9 % (42.8-82.8); PLATELET COUNT 268 K/MM3 (134-434); RBC 3.92 M/mm3 (3.60-5.2); RDW 13.3 % (11.6-15.6); WHITE BLOOD COUNT 9.4 K/mm3 (4.0-10.0)
[2017-10-24 08:57] LABS: CHLORIDE 104 mmol/L (98-107); POTASSIUM 3.5 mmol/L (3.5-5.1); SODIUM 140 mmol/L (136-145)
[2017-10-24 09:15] LABS: ALBUMIN 2.7 g/dl (3.4-5.0); ALK PHOS 381 U/L (45-117); ANION GAP 10 (8-16); BILIRUBIN,TOTAL 1.1 mg/dL (0.2-1.0); BLOOD UREA NITROGEN 12 mg/dL (7-18); CALCIUM 8.2 mg/dL (8.5-10.1); CO2 26 mmol/L (21-32); CREATININE 0.5 mg/dL (0.55-1.02); GLUCOSE,RANDOM 113 mg/dL (74-106); SGOT/AST 62 U/L (15-37); SGPT/ALT 142 U/L (12-78); TOT PROT 6.1 g/dl (6.4-8.2)
--- NOTE | 2017-10-24 10:00 | PN ---
Teaching Attending Note Name of Resident: Nick Domínguez ATTENDING PHYSICIAN STATEMENT I saw and evaluated the patient. I reviewed the resident's note and discussed the case with the resident. I agree with the resident's findings and plan as documented. SUBJECTIVE: Patient is feeling better. No acute distress. OBJECTIVE: Vital Signs Temperature 99.2 F 10/23/17 23:30 Pulse Rate 84 10/24/17 04:00 Respiratory Rate 18 10/24/17 04:00 Blood Pressure 162/75 10/24/17 04:00 O2 Sat by Pulse Oximetry (%) 93 L 10/23/17 21:00 CBCD WBC 9.4 K/mm3 (4.0-10.0) 10/24/17 06:00 RBC 3.92 M/mm3 (3.60-5.2) 10/24/17 06:00 Hgb 12.4 GM/dL (10.7-15.3) 10/24/17 06:00 Hct 37.4 % (32.4-45.2) 10/24/17 06:00 MCV 95.3 fl (80-96) 10/24/17 06:00 MCHC 33.2 g/dl (32.0-36.0) 10/24/17 06:00 RDW 13.3 % (11.6-15.6) 10/24/17 06:00 Plt Count 268 K/MM3 (134-434) 10/24/17 06:00 MPV 8.9 fl (7.5-11.1) 10/24/17 06:00 CMP Sodium 140 mmol/L (136-145) 10/24/17 06:00 Potassium 3.5 mmol/L (3.5-5.1) 10/24/17 06:00 Chloride 104 mmol/L (98-107) 10/24/17 06:00 Carbon Dioxide 26 mmol/L (21-32) 10/24/17 06:00 Anion Gap 10 (8-16) 10/24/17 06:00 BUN 12 mg/dL (7-18) D 10/24/17 06:00 Creatinine 0.5 mg/dL (0.55-1.02) L 10/24/17 06:00 Creat Clearance w eGFR > 60 (>60) 10/24/17 06:00 Random Glucose 113 mg/dL (74-106) H 10/24/17 06:00 Calcium 8.2 mg/dL (8.5-10.1) L 10/24/17 06:00 Total Bilirubin 1.1 mg/dL (0.2-1.0) H D 10/24/17 06:00 AST 62 U/L (15-37) H D 10/24/17 06:00 ALT 142 U/L (12-78) H 10/24/17 06:00 Alkaline Phosphatase 381 U/L (45-117) H 10/24/17 06:00 Total Protein 6.1 g/dl (6.4-8.2) L 10/24/17 06:00 Albumin 2.7 g/dl (3.4-5.0) L 10/24/17 06:00 CARDIAC ENZYMES Creatine Kinase 124 IU/L (26-192) 10/19/17 00:30 Troponin I < 0.02 ng/ml (0.00-0.05) 10/19/17 00:30 Current Medications Generic Name Dose Route Start Last Admin Trade Name Freq PRN Reason Stop Dose Admin Acetaminophen 650 mg 10/19/17 05:30 10/21/17 21:54 Tylenol - PO 650 mg Q4H PRN Administration FEVER OR PAIN Artificial Tears 1 drop 10/19/17 07:33 Artificial Tears OU TID PRN DRY EYES Heparin Sodium (Porcine) 5,000 unit 10/24/17 10:00 Heparin - SQ TID [facility] Sodium Chloride 1,000 mls @ 75 mls/hr 10/22/17 15:45 10/23/17 17:54 Normal Saline - IV Not Given ASDIR [facility] Nifedipine 60 mg 10/19/17 10:00 10/23/17 11:51 Procardia Xl - PO 60 mg DAILY [facility] Administration Nitrofurantoin Macrocrystals 50 mg 10/23/17 12:00 10/24/17 06:37 Macrodantin - PO 50 mg Q6HPO [facility] Administration Non-Formulary Medication 1 each 10/19/17 10:00 Cariprazine Hcl [Vraylar] PO DAILY [facility] Pramipexole Dihydrochloride 1 mg 10/19/17 10:00 10/24/17 00:46 Mirapex - PO 1 mg BID [facility] Administration Home Medications Medication Instructions Recorded Cariprazine HCl [Vraylar] 1.5 mg PO DAILY 11/17/16 Nifedipine [Nifedical Xl] 60 mg PO DAILY 11/17/16 Pramipexole Dihydrochloride 1 mg PO BID 11/17/16 [Mirapex -] Polyvinyl Alcohol [Artificial 1 drop OU TID PRN drops 10/22/17 Tears] 10/19/17 00:30 Blood - Peripheral Venous Blood Culture - Preliminary NO GROWTH OBTAINED AFTER 72 HOURS, INCUBATION TO CONTINUE FOR 2 DAYS. 10/19/17 00:30 Blood - Peripheral Venous Blood Culture - Preliminary NO GROWTH OBTAINED AFTER 72 HOURS, INCUBATION TO CONTINUE FOR 2 DAYS. 10/19/17 01:56 Urine - Urine Clean Catch Urine Culture - Final Escherichia Coli 10/19/17 01:00 Nasopharyngeal Swab Influenza Types A,B Antigen (DAVID) - Final 10/19/17 01:00 Nasopharyngeal Swab - Final Ct abdomen and pelvis: prominent pancreatic head suspesious for pancreatic mass , distended gall bladder containing calculi. PE: per resident's note ASSESSMENT AND PLAN: Patient is a 82 y/o female with h/o HTN, dementia, spinal stenosis, Hx of DVT/ PE ( not in [place] records), who was brought in form [place] due to haVING fever and was admitted for having sepsis. # s/p sepsis: most likely due to UTI/cholangitis s/p Ertapenem x 4 days , sensitive to Nitrofurantoin day #2 today , patient is allergic to PCN , so far blood culture is negative , on IVF continue # Elevated LFTs: As per CT scan of abdomen reported prominent pancreatic head mass s/p ERCP. As per findings reported in his notes GI Procedure Note: Please see ERCP report. A malignant appearing distal CBD stricture with proximal dilation was noted suggesting a pancreatic cancer vs cholangiocarcinoma. Brushings were taken and a 7Fr stent inserted palliatively: the result of Path/brushings negative for malignancy. Patient is being transferred to a tertiary care center to [facility] under Dr.sammy Mercdao's service . Repeat ERCP to place a metallic stent. mRCP was attempted but patient is not cooperative. CA-19-9: elevated at 62, pt is being transferred to [facility] for EUS and metallic stent placement. # H/o HTN: cont home nifedipine. DVT PX: Heparin DnR/DNI.
[2017-10-24] MEDS ORDERED: PT OWN MED DRAWER 7, Y5N ONE ×2 (10:59→12:01)
[2017-10-24] MEDS: NIFEdipine E.R 60 MG TABLET (UD) PO SCH (11:15)
[2017-10-24] MEDS: HEPARIN NA (PORCINE) 5,000 UNITS/ML 1ML VIAL SQ SCH ×2 (11:15→14:29)
[2017-10-24] MEDS ORDERED: POTASSIUM CHLORIDE TABS 20 MEQ TABLET.ER (FP) PO ONE (11:45)
--- NOTE | 2017-10-24 13:40 | PN ---
Progress Note, Physician History of Present Illness: Appears comfortable, not in distress, or pain. Tolerating diet. Path/brushings negative for malignancy - Current Medication List Current Medications: Active Medications Acetaminophen (Tylenol -) 650 mg PO Q4H PRN PRN Reason: FEVER OR PAIN Last Admin: 10/21/17 21:54 Dose: 650 mg Artificial Tears (Artificial Tears) 1 drop OU TID PRN PRN Reason: DRY EYES Heparin Sodium (Porcine) (Heparin -) 5,000 unit SQ TID [facility] Last Admin: 10/24/17 11:15 Dose: 5,000 unit Sodium Chloride (Normal Saline -) 1,000 mls @ 75 mls/hr IV ASDIR [facility] Last Admin: 10/23/17 17:54 Dose: Not Given Nifedipine (Procardia Xl -) 60 mg PO DAILY [facility] Last Admin: 10/24/17 11:15 Dose: 60 mg Nitrofurantoin Macrocrystals (Macrodantin -) 50 mg PO Q6HPO [facility] Last Admin: 10/24/17 06:37 Dose: 50 mg Non-Formulary Medication (Cariprazine Hcl [Vraylar]) 1 each PO DAILY [facility] Pramipexole Dihydrochloride (Mirapex -) 1 mg PO BID [facility] Last Admin: 10/24/17 11:15 Dose: 1 mg - Objective Vital Signs: Vital Signs Temperature 98.8 F 10/24/17 08:00 Pulse Rate 78 10/24/17 08:00 Respiratory Rate 18 10/24/17 08:00 Blood Pressure 147/93 10/24/17 08:00 O2 Sat by Pulse Oximetry (%) 93 L 10/23/17 21:00 Labs: CBC, BMP 10/24/17 06:00 10/24/17 06:00 INR, PTT INR 1.06 (0.82-1.09) 10/23/17 08:00 Problem List - Problems (1) Cholelithiasis with acute cholangitis Code(s): K80.20 - CALCULUS OF GALLBLADDER W/O CHOLECYSTITIS W/O OBSTRUCTION; K83.0 - CHOLANGITIS (2) Common bile duct (CBD) stricture Code(s): K83.1 - OBSTRUCTION OF BILE DUCT (3) Common bile duct (CBD) obstruction Code(s): K83.1 - OBSTRUCTION OF BILE DUCT Assessment/Plan Non-toxic appearance and comfortable. Liver chemistry, bili improving slowly Negative for malignancy brushings ? [facility]
[2017-10-24] MEDS: SODIUM CHLORIDE 1,000 ML IV SCH (17:46)
[2017-10-24 21:09] VITALS: BP 146/71; PULSE 88; TEMP 98.6
[2017-10-24] MEDS ORDERED: NYSTATIN POWDER 100,000 UNITS/GM - 15 GM TOPICAL POWDER TP SCH (22:00)
--- NOTE | 2017-10-25 15:58 | DS ---
Physical Exam: SUBJECTIVE: Patient seen and examined No acute events overnight. Pt complaining of mild headache and mild nausea. She denies chest pain, SOB, abdominal pain, emesis, constipation, diarrhea, and dysuria. OBJECTIVE: Vital Signs Period Temp Pulse Resp BP Sys/Soriano Pulse Ox Last 24 Hr 97.1 F-98.6 F 88-94 18-20 121-146/62-71 96 PHYSICAL EXAM GENERAL: elderly female, in NAD, AAOx1 (name) HEENT: NC, AT NECK: Normal range of motion, supple without lymphadenopathy, JVD, or masses. LUNGS: Breath sounds equal, clear to auscultation bilaterally. No wheezes, and no crackles. No accessory muscle use. HEART: normal rate and rhythm, + systolic murmur ABDOMEN: ND, normoactive BS, soft, NT MUSCULOSKELETAL: trace b/l LE edema NEUROLOGICAL: Cranial nerves II-XII intact. Normal speech. LABS Laboratory Last Values WBC 9.4 K/mm3 (4.0-10.0) 10/24/17 06:00 RBC 3.92 M/mm3 (3.60-5.2) 10/24/17 06:00 Hgb 12.4 GM/dL (10.7-15.3) 10/24/17 06:00 Hct 37.4 % (32.4-45.2) 10/24/17 06:00 MCV 95.3 fl (80-96) 10/24/17 06:00 MCH 31.6 pg (25.7-33.7) 10/24/17 06:00 MCHC 33.2 g/dl (32.0-36.0) 10/24/17 06:00 RDW 13.3 % (11.6-15.6) 10/24/17 06:00 Plt Count 268 K/MM3 (134-434) 10/24/17 06:00 MPV 8.9 fl (7.5-11.1) 10/24/17 06:00 Neutrophils % 61.9 % (42.8-82.8) 10/24/17 06:00 Neutrophils % (Manual) 82.0 % (42.8-82.8) 10/22/17 06:00 Band Neutrophils % 0.0 % 10/22/17 06:00 Lymphocytes % 22.5 % (8-40) 01/05/18 06:00 Lymphocytes % (Manual) 12.0 % (8-40) 10/22/17 06:00 Monocytes % 13.1 % (3.8-10.2) H 10/24/17 06:00 Monocytes % (Manual) 6 % (3.8-10.2) 10/22/17 06:00 Eosinophils % 2.2 % (0-4.5) 10/24/17 06:00 Eosinophils % (Manual) 0.0 % (0-4.5) 10/22/17 06:00 Basophils % 0.3 % (0-2.0) 10/24/17 06:00 Basophils % (Manual) 0.0 % (0-2.0) 10/22/17 06:00 Myelocytes % (Man) 0 % (0-2) 10/22/17 06:00 Metamyelocytes 0 % (0-2) 10/22/17 06:00 Hypochromia 0 10/22/17 06:00 Toxic Granulation 0 10/22/17 06:00 Dohle Bodies 0 10/22/17 06:00 Platelet Estimate Normal 10/22/17 06:00 Polychromasia 0 10/22/17 06:00 Poikilocytosis 0 10/22/17 06:00 Basophilic Stippling 0 10/22/17 06:00 Anisocytosis 0 10/22/17 06:00 Microcytosis 0 10/22/17 06:00 Macrocytosis 0 10/22/17 06:00 Spherocytes 0 10/22/17 06:00 Sickle Cells 0 10/22/17 06:00 Target Cells 0 10/22/17 06:00 Tear Drop Cells 0 10/22/17 06:00 Ovalocytes 0 10/22/17 06:00 Stomatocytes 0 10/22/17 06:00 Helmet Cells 0 10/22/17 06:00 Arellano-Au Gres Bodies 0 10/22/17 06:00 Irvine Rings 0 10/22/17 06:00 Darius Cells 0 10/22/17 06:00 Acanthocytes (Spur) 0 10/22/17 06:00 Fragmented RBCs 0 10/22/17 06:00 Schistocytes 0 10/22/17 06:00 PT with INR 12.00 SEC (9.98-11.88) H 10/23/17 08:00 INR 1.06 (0.82-1.09) 10/23/17 08:00 VBG pH 7.44 (7.32-7.42) H 10/19/17 00:30 POC VBG pCO2 38.4 mmHg (38-52) 10/19/17 00:30 POC VBG pO2 54.7 mmHg (28-48) H 10/19/17 00:30 Mixed VBG HCO3 25.4 meq/L (19-25) H 10/19/17 00:30 Sodium 140 mmol/L (136-145) 10/24/17 06:00 Potassium 3.5 mmol/L (3.5-5.1) 10/24/17 06:00 Chloride 104 mmol/L (98-107) 10/24/17 06:00 Carbon Dioxide 26 mmol/L (21-32) 10/24/17 06:00 Anion Gap 10 (8-16) 10/24/17 06:00 BUN 12 mg/dL (7-18) D 10/24/17 06:00 Creatinine 0.5 mg/dL (0.55-1.02) L 10/24/17 06:00 Creat Clearance w eGFR > 60 (>60) 10/24/17 06:00 Random Glucose 113 mg/dL (74-106) H 10/24/17 06:00 Lactic Acid 1.9 mmol/L (0.4-2.0) 10/19/17 06:56 Calcium 8.2 mg/dL (8.5-10.1) L 10/24/17 06:00 Phosphorus 2.8 mg/dL (2.5-4.9) 10/19/17 00:30 Magnesium 2.1 mg/dL (1.8-2.4) 10/19/17 00:30 Total Bilirubin 1.1 mg/dL (0.2-1.0) H D 10/24/17 06:00 Direct Bilirubin 0.9 mg/dL (0.0-0.2) H D 10/23/17 08:00 AST 62 U/L (15-37) H D 10/24/17 06:00 ALT 142 U/L (12-78) H 10/24/17 06:00 Alkaline Phosphatase 381 U/L (45-117) H 10/24/17 06:00 Creatine Kinase 124 IU/L (26-192) 10/19/17 00:30 Troponin I < 0.02 ng/ml (0.00-0.05) 10/19/17 00:30 C-Reactive Protein 5.2 MG/DL (0.00-0.3) H D 10/22/17 06:00 B-Natriuretic Peptide 1153.73 pg/ml (5-450) H 10/19/17 00:30 Total Protein 6.1 g/dl (6.4-8.2) L 10/24/17 06:00 Albumin 2.7 g/dl (3.4-5.0) L 10/24/17 06:00 Total Amylase 16 U/L (25-115) L D 10/22/17 06:00 Lipase 74 U/L (73-393) 10/22/17 06:00 CA 19-9 Antigen 62 U/mL (0-35) H 10/20/17 05:35 Urine Color Donna 10/19/17 01:56 Urine Appearance Cloudy 10/19/17 01:56 Urine pH 6.0 (5.0-8.0) 10/19/17 01:56 Ur Specific [place] 1.027 (1.001-1.035) 10/19/17 01:56 Urine Protein 1+ (NEGATIVE) H 10/19/17 01:56 Urine Glucose (UA) Negative (NEGATIVE) 10/19/17 01:56 Urine Ketones Negative (NEGATIVE) 10/19/17 01:56 Urine Blood 1+ (NEGATIVE) H 10/19/17 01:56 Urine Nitrite Positive (NEGATIVE) 10/19/17 01:56 Urine Bilirubin 2.0 (NEGATIVE) 10/19/17 01:56 Urine Urobilinogen 4.0 e.u/dl mg/dL (0.2-1.0) H 10/19/17 01:56 Ur Leukocyte Esterase 1+ (NEGATIVE) H 10/19/17 01:56 Urine WBC (Auto) 413 /hpf (3-5) 10/19/17 01:56 Urine RBC (Auto) 45 /hpf (0-3) 10/19/17 01:56 Urine Bacteria Many /hpf (NONE SEEN) 10/19/17 01:56 Hyaline Casts 10 /lpf 10/19/17 01:56 Urine Mucus Rare 10/19/17 01:56 Acetaminophen 6.873 ug/ml (10.0-30.0) L 10/19/17 06:56 Alcohol, Quantitative < 5.0 mg/dl (0-5) 10/19/17 08:40 Hep A IgM Ab Confirm Negative (Negative) 10/19/17 06:56 Hepatitis A Ab Total Positive (Negative) H 10/19/17 06:56 Hep Bs Antigen Negative (Negative) 10/19/17 06:56 Hep Bs Antibody Non reactive (.) 10/19/17 06:56 Hep B Core Total Ab Negative (Negative) 10/19/17 06:56 Hepatitis C Antibody 0.1 s/co ratio (0.0-0.9) 10/19/17 06:56 Blood Type B POSITIVE 10/19/17 00:30 Antibody Screen Negative 10/19/17 00:30 Microbiology 10/19/17 00:30 Blood - Peripheral Venous Blood Culture - Final NO GROWTH AFTER 5 DAYS INCUBATION 10/19/17 00:30 Blood - Peripheral Venous Blood Culture - Final NO GROWTH AFTER 5 DAYS INCUBATION 10/19/17 01:56 Urine - Urine Clean Catch Urine Culture - Final Escherichia Coli 10/19/17 01:00 Nasopharyngeal Swab Influenza Types A,B Antigen (DAVID) - Final 10/19/17 01:00 Nasopharyngeal Swab - Final CT abd/pelvis: Sequential axial images were obtained from the domes of the diaphragms through the bifurcation following the administration of intravenous contrast material. Triphasic pancreatic protocol was utilized. Evaluation of the lung bases demonstrates bilateral pleural effusions with mild atelectatic changes of the lower lobes, right greater than left. The pancreatic head is bulky in appearance with no discrete mass identified. The tail of the pancreas is somewhat atrophic with dilatation of the pancreatic duct. The gallbladder is distended and does contain calculi. The biliary tree is also slightly dilated. A follow-up MRCP examination is recommended. Endoscopic ultrasound may also be helpful to evaluate the pancreatic head. The liver, spleen, adrenal glands and kidneys demonstrate no significant abnormalities. There is no evidence of intra- abdominal or retroperitoneal lymphadenopathy or fluid collections. A filter is identified within the IVC. There is no evidence of acute bony pathology. IMPRESSION: 1. Prominent pancreatic head suspicious for a mass. MRCP and endoscopic ultrasound recommended. 2. Distended gallbladder containing calculi. Please see above discussion. ERCP XR: Imaging has been obtained during instrumentation of the biliary tree. The common duct appears dilated. There is an IVC filter. A stent is been inserted. The imaging is available for review. HOSPITAL COURSE: Date of Admission:10/19/17 Date of Discharge: 10/25/17 82F w/ hx of UTI with ESBL E. coli, dementia, HTN, spinal stenosis, and DVT/PE who presented to the emergency department via EMS from [address] [place] [address] with fever, was found to have tachycardia, leukocytosis, lactic acidosis, elevated LFTs, and UA consistent with UTI. Pt had history of ESBL and an allergy to PCN, so was treated with ertapenem for her UTI, and changed to macrobid once sensitivities returned. For her abnormal LFTs, a CT abdomen revealed a suspicious pancreatic mass, and a CA-19-9 was elevated at 62. An MRCP was attempted, but was unsuccessful as the pt was not cooperative. An ERCP was done which showed a malignant-appearing distal CBD stricture suggesting pancreatic vs. cholangiocarcinoma. Brushings were taken which were negative for malignancy , and a 7FR stent was inserted. Per GI, pt needed a transfer to a tertiary care center for an EUS and repeat ERCP with metallic stent placement. Pt has state-appointed HCP who was notified of pt's medical condition. At this time, she consents to the transfer, and would like the EUS to be done and metallic stent to be placed. Pt accepted to service of Dr. Eber Mercado at [facility]. Today, pt is afebrile, hemodynamically stable, without subjective complaints, has a benign physical exam, downtrending LFTs, and is stable for discharge to [facility]. -Nick Domínguez MD PGY1 Minutes to complete discharge: 36 Discharge Summary Reason For Visit: UTI, SEPSIS, CHOLANGITIS Condition: Guarded - Instructions Diet, Activity, Other Instructions: You presented with fever and were found to have severe sepsis from a UTI and abnormal liver function tests. Your UTI has been treated with antibiotics. Workup of your liver function tests shows possible malignancy in your pancreas or common bile duct. You underwent a procedure called an ERCP, and a temporary stent was placed to help drain bile. You are being transferred to [facility] for a more permanent stent placement and another procedure called an endoscopic ultrasound which will allow the doctor to biopsy the pancreas and determine if malignancy exists. Medications: continue all previous medications Follow-ups: 1. Please follow up with your PCP within one week. 2. Please follow up with GI, Dr. Eber Mercado within one week after discharge from [facility]. If you develop any fevers, chills, abdominal pain, shortness of breath, chest pain, or any other concerning symptoms, return to the ED. Disposition: TRANSFER ACUTE CARE/OTHER HOSP - Home Medications Comprehensive Discharge Medication List: Ambulatory Orders Cariprazine HCl [Vraylar] 1.5 mg PO DAILY 11/17/16 Nifedipine [Nifedical Xl] 60 mg PO DAILY 11/17/16 Pramipexole Dihydrochloride [Mirapex -] 1 mg PO BID 11/17/16 Polyvinyl Alcohol [Artificial Tears] 1 drop OU TID PRN drops 10/22/17 This patient is new to me today: No Emergency Visit: Yes ED Registration Date: 10/19/17 Care time: The patient presented to the Emergency Department on the above date and was hospitalized for further evaluation of their emergent condition. Critical Care patient: No - Discharge Referral Referred to [facility] Med P.C.: No
== END 2017-10-24 21:18 | disposition short-term general hospital (02) | DRG 871 ==
LOC: JER 22:25 → JERBED 10-19 02:46 → UNDOADMIN 10-19 02:49 → J8W 10-19 18:32
PROVIDERS: ADMIT Internal Medicine; ATTEND Internal Medicine
PROC: BF10YZZ Fluoroscopy of Bile Ducts using Other Contrast (ICD-10-PCS; 2017-10-21)
PROC: 0F798DZ Dilation of Common Bile Duct with Intraluminal Device, Via Natural or Artificial Opening Endoscopic (ICD-10-PCS; principal; 2017-10-21 12:30)
DX: A41.9 Sepsis, unspecified organism (principal); K83.1 Obstruction of bile duct; E87.2 Acidosis; N39.0 Urinary tract infection, site not specified; K83.0 Cholangitis; R65.20 Severe sepsis without septic shock; F03.90 Unspecified dementia, unspecified severity, without behavioral disturbance, psychotic disturbance, mood disturbance, and anxiety; I10 Essential (primary) hypertension; R74.0 Nonspecific elevation of levels of transaminase and lactic acid dehydrogenase [LDH]; K80.20 Calculus of gallbladder without cholecystitis without obstruction; Z88.0 Allergy status to penicillin; K86.9 Disease of pancreas, unspecified; E87.6 Hypokalemia; M48.00 Spinal stenosis, site unspecified
CPT/HCPCS: 36415; 70200-TC; 70260-TC; 71010-TC; 72170-TC; 74000-TC; 74160-TC; 74330-TC; 76705-TC; 80048; 80053; 80076; 80307; 81003; 81015; 82150; 82248; 82550; 82803; 83605; 83690; 83735; 83880; 84100; 84484; 85025; 85610; 86140; 86301; 86704; 86706; 86708; 86803; 86850; 86900; 86901; 87040; 87086; 87186; 87340; 87804; 88104; 93005; 93010; 97116-GP; 97161-GP; 99285-25; J1644